=== PATIENT | male | born 1955 | race American Indian/Alaskan Native ===

== ENCOUNTER 2017-12-11 16:04 | Emergency (ER) | payer SELFPAY ==
[2017-12-11 16:13] VITALS: BP 139/91
--- NOTE | 2017-12-11 17:24 | Emergency Department Report ---
ED Male HPI - General Chief complaint: Urogenital-Male Stated complaint: COLON ISSUES Source: patient Mode of arrival: Ambulatory Limitations: No Limitations - History of Present Illness Initial comments: This is a 62-year-old male sitting from [place] with a complaint of difficulty urinating. Past medical history of BPH. Patient states he wears a catheter and the catheter changed. Patient states he was placed October 14 while in [place]. He is concerned it may cause infection. He was told to need to change every 3-4 weeks. He is currently taken finasteride and tamsulosin. He is currently here visiting son and unable to follow up with urology. Patient denies pelvic pain, nausea or vomiting, or fever. MD Complaint: other (change indwelling catheter) Onset/Timin -: month(s) Severity scale (0 -10): 0 Improves with: none Worsens with: none indwelling catheter denies other symptoms - Related Data Sexually active: No Allergies Allergy/AdvReac Type Severity Reaction Status Date / Time No Known Allergies Allergy Verified 12/11/17 16:13 ED Review of Systems ROS: Stated complaint: COLON ISSUES Other details as noted in HPI Constitutional: denies: chills, fever Respiratory: denies: cough, shortness of breath, wheezing Cardiovascular: denies: chest pain, palpitations Gastrointestinal: denies: abdominal pain, nausea, diarrhea Genitourinary: denies: urgency, dysuria Skin: denies: rash, lesions Neurological: denies: headache, weakness, paresthesias Psychiatric: denies: anxiety, depression ED Past Medical Hx - Past Medical History Additional medical history: BPH - Surgical History Past Surgical History?: No - Social History Smoking Status: Never Smoker Substance Use Type: None ED Physical Exam - General Limitations: No Limitations General appearance: alert, in no apparent distress - Respiratory Respiratory exam: Present: normal lung sounds bilaterally. Absent: respiratory distress - Cardiovascular Cardiovascular Exam: Present: regular rate, normal rhythm. Absent: systolic murmur, diastolic murmur, rubs, gallop - GI/Abdominal GI/Abdominal exam: Present: soft, normal bowel sounds - Neurological Exam Neurological exam: Present: alert, oriented X3 - Psychiatric Psychiatric exam: Present: normal affect, normal mood - Skin Skin exam: Present: warm, dry, intact, normal color. Absent: rash ED Course Vital Signs 12/11/17 16:07 Temperature 98.3 F Pulse Rate 85 Respiratory 16 Rate Blood Pressure 139/91 O2 Sat by Pulse 99 Oximetry ED Medical Decision Making - Medical Decision Making Patient was examined by me. Vitals are normal and patient is in no acute distress. Patient presents for replacement of catheter. Discuss options to change catheter with RN who did not feel comfortable changing catheter without urology station baggage porter. Referred to urology or follow-up with another hospital to see urology station baggage porter for catheter replacement. Plan discussed with patient to discharge home and options for follow-up. He agrees with ER plan. Patient discharged home in stable condition. Follow up with PCP in 2-3 days. Critical care attestation.: If time is entered above; I have spent that time in minutes in the direct care of this critically ill patient, excluding procedure time. ED Disposition Clinical Impression: Presence of indwelling Griffith catheter, Encounter for replacement of urinary catheter Disposition: TO HOME OR SELFCARE Is pt being admited?: No Does the pt Need Aspirin: No Condition: Stable Instructions: Griffith Catheter Placement and Care (ED) Additional Instructions: Follow up with urology of emergency room with urology station baggage porter for indwelling catheter replacement. Referrals: VLADIMIR JIMENEZ [Provider Group] - 3-5 Days Time of Disposition: 18:09 Print Language: HONG KONGER
== END 2017-12-11 18:22 | disposition home or self-care (01) ==
LOC: ED 16:04
DX: Z44.8 Encounter for fitting and adjustment of other external prosthetic devices (principal); N40.0 Benign prostatic hyperplasia without lower urinary tract symptoms
CPT/HCPCS: 51702; 99282

== ENCOUNTER 2018-03-11 11:10 | Inpatient (IN) | payer OTHER ==
[2018-03-11] MEDS ORDERED: TYLENOL PO ONE (12:08)
[2018-03-11] MEDS ORDERED: NACL 0.9% 1000 ML 1,000 ML IV ONE (12:10)
--- NOTE | 2018-03-11 12:15 | Emergency Department Report ---
HPI - General Chief Complaint: Altered Mental Status Time Seen by Provider: 03/11/18 11:35 - HPI HPI: Room 2 The patient is 62-year-old male presenting with a chief complaint of altered mental status. The patient's son states that the patient is visiting him and has been in his usual state of health until last night. The son states at approximately 02:00 he had heard the patient fall. By the time the son got upstairs he states the patient was already up and coming out of the bathroom. The son states he feels as though something was not right. He states patient has shallow breathing. The son states he monitored the patient for a while before he (the patient) went to sleep. This morning he went to check on the patient states she still has shallow respirations and still seemed disoriented with decreased alertness. The patient acknowledges he has suprapubic abdominal pain. Patient denies nausea vomiting. Patient denies shortness of breath states he feels as though he could not take a full breath. The patient gives his pain a score of 5/10 Location: [See above] Duration: [See above] Quality: Pain Severity: 5/10 Modifying factors: [see above] Context: [see above] Mode of transportation: [not driving] ED Past Medical Hx - Past Medical History Additional medical history: BPH - Surgical History Past Surgical History?: No - Family History Family history: no significant - Social History Smoking Status: Never Smoker Substance Use Type: None (denies illicit drug use) - Medications Home Medications: Home Medications Medication Instructions Recorded Confirmed Last Taken Type Finasteride [Proscar] 5 mg PO DAILY #14 tablet 12/11/17 Unknown Rx Tamsulosin HCl [Flomax] 0.4 mg PO DAILY #14 cap.er.24h 12/11/17 Unknown Rx ED Review of Systems ROS: Stated complaint: FLU LIKE SYMPTOMS Other details as noted in HPI Constitutional: fever Eyes: denies: eye pain ENT: denies: throat pain Respiratory: denies: shortness of breath Cardiovascular: denies: chest pain Endocrine: no symptoms reported Gastrointestinal: abdominal pain. denies: nausea, vomiting Genitourinary: other (difficulty urinating) Musculoskeletal: denies: back pain Neurological: other (altered mental status). denies: headache Physical Exam - Physical Exam Vital Signs: Vital Signs 03/11/18 11:21 Temperature 101.3 F H Pulse Rate 102 H Respiratory 18 Rate Blood Pressure 175/94 O2 Sat by Pulse 97 Oximetry Physical Exam: GENERAL: The patient is well-developed well-nourished male lying on stretcher not appearing to be in acute distress. [] HEENT: Normocephalic. Atraumatic. Extraocular motions are intact. Patient has moist mucous membranes. NECK: Supple. Trachea midline CHEST/LUNGS: Clear to auscultation. There is no respiratory distress noted. HEART/CARDIOVASCULAR: Regular. There is tachycardia. There is no gallop rub or murmur. ABDOMEN: Abdomen is soft, with tenderness to palpation in the suprapubic and left lower quadrant. Patient has normal bowel sounds. There is no abdominal distention. SKIN: There is no rash. There is no edema. There is no diaphoresis. NEURO: The patient is awake and oriented but slightly decreased alertness. The patient is cooperative. The patient has no focal neurologic deficits. The patient has normal speech. Cranial nerves II through XII grossly intact, no drift MUSCULOSKELETAL: There is no evidence of acute injury. ED Course Vital Signs 03/11/18 11:21 Temperature 101.3 F H Pulse Rate 102 H Respiratory 18 Rate Blood Pressure 175/94 O2 Sat by Pulse 97 Oximetry - Consultations Consultation #1: 03/11/18 13:12 Urology paged- case discussed with Dr Tomlinson- will come place [facility] Medical Decision Making - Lab Data Result diagrams: 03/11/18 12:22 03/11/18 12:22 Laboratory Tests 03/11/18 03/11/18 03/11/18 12:22 12:22 12:22 WBC 12.6 H RBC 4.01 Hgb 10.9 L Hct 32.6 L MCV 81 L MCH 27 L MCHC 33 RDW 14.6 Plt Count 183 Add Manual Diff Complete Total Counted 100 Seg Neutrophils % Dry Cleaning Machine Operator Helper Seg Neuts % (Manual) 87.0 H Band Neutrophils % 9.0 Lymphocytes % (Manual) 4.0 L Reactive Lymphs % (Man) 0 Monocytes % (Manual) 0 Eosinophils % (Manual) 0 Basophils % (Manual) 0 Metamyelocytes % 0 Myelocytes % 0 Promyelocytes % 0 Blast Cells % 0 Nucleated RBC % Not Reportable Seg Neutrophils # Man 11.0 H Band Neutrophils # 1.1 Lymphocytes # (Manual) 0.5 L Abs React Lymphs (Man) 0.0 Monocytes # (Manual) 0.0 Eosinophils # (Manual) 0.0 Basophils # (Manual) 0.0 Metamyelocytes # 0.0 Myelocytes # 0.0 Promyelocytes # 0.0 Blast Cells # 0.0 WBC Morphology Not Reportable Hypersegmented Neuts Not Reportable Hyposegmented Neuts Not Reportable Hypogranular Neuts Not Reportable Smudge Cells Not Reportable Toxic Granulation Not Reportable Toxic Vacuolation Not Reportable Dohle Bodies Not Reportable Pelger-Huet Anomaly Not Reportable Mirna Rods Not Reportable Platelet Estimate Appears normal Clumped Platelets Not Reportable Plt Clumps, EDTA Not Reportable Large Platelets Not Reportable Giant Platelets Not Reportable Platelet Satelliting Not Reportable Plt Morphology Comment Not Reportable RBC Morphology Not Reportable Dimorphic RBCs Not Reportable Polychromasia Not Reportable Hypochromasia Few Poikilocytosis Not Reportable Anisocytosis 1+ Microcytosis Not Reportable Macrocytosis Not Reportable Spherocytes Not Reportable Pappenheimer Bodies Not Reportable Sickle Cells Not Reportable Target Cells Not Reportable Tear Drop Cells Rare Ovalocytes 1+ Helmet Cells Not Reportable [place] Bodies Not Reportable [place] Rings Not Reportable [place] Cells Not Reportable Bite Cells Not Reportable Crenated Cell Not Reportable Elliptocytes Not Reportable Acanthocytes (Spur) Rare Rouleaux Not Reportable Hemoglobin C Crystals Not Reportable Schistocytes Not Reportable Malaria parasites Not Reportable Christopher Bodies Not Reportable Hem Pathologist Commnt No PT 14.1 INR 1.05 APTT 29.1 Sodium 135 L Potassium 4.4 Chloride 101.3 Carbon Dioxide 20 L Anion Gap 18 BUN 37 H Creatinine 1.9 H Estimated GFR 43 BUN/Creatinine Ratio 19 Glucose 114 H Calcium 8.5 Total Bilirubin 0.40 AST 14 ALT 10 Alkaline Phosphatase 73 Total Creatine Kinase 110 CK-MB (CK-2) < 1.0 CK-MB (CK-2) Rel Index 0.9 Troponin T < 0.010 Total Protein 7.8 Albumin 3.6 L Albumin/Globulin Ratio 0.9 Lipase 31 Urine Color Urine Turbidity Urine pH Ur Specific [place] Urine Protein Urine Glucose (UA) Urine Ketones Urine Blood Urine Nitrite Urine Bilirubin Urine Urobilinogen Ur Leukocyte Esterase Urine WBC (Auto) Urine RBC (Auto) U Epithel Cells (Auto) Urine Bacteria (Auto) Hyaline Casts Urine Mucus 03/11/18 12:23 WBC RBC Hgb Hct MCV MCH MCHC RDW Plt Count Add Manual Diff Total Counted Seg Neutrophils % Seg Neuts % (Manual) Band Neutrophils % Lymphocytes % (Manual) Reactive Lymphs % (Man) Monocytes % (Manual) Eosinophils % (Manual) Basophils % (Manual) Metamyelocytes % Myelocytes % Promyelocytes % Blast Cells % Nucleated RBC % Seg Neutrophils # Man Band Neutrophils # Lymphocytes # (Manual) Abs React Lymphs (Man) Monocytes # (Manual) Eosinophils # (Manual) Basophils # (Manual) Metamyelocytes # Myelocytes # Promyelocytes # Blast Cells # WBC Morphology Hypersegmented Neuts Hyposegmented Neuts Hypogranular Neuts Smudge Cells Toxic Granulation Toxic Vacuolation Dohle Bodies Pelger-Huet Anomaly Mirna Rods Platelet Estimate Clumped Platelets Plt Clumps, EDTA Large Platelets Giant Platelets Platelet Satelliting Plt Morphology Comment RBC Morphology Dimorphic RBCs Polychromasia Hypochromasia Poikilocytosis Anisocytosis Microcytosis Macrocytosis Spherocytes Pappenheimer Bodies Sickle Cells Target Cells Tear Drop Cells Ovalocytes Helmet Cells [place] Bodies [place] Rings [place] Cells Bite Cells Crenated Cell Elliptocytes Acanthocytes (Spur) Rouleaux Hemoglobin C Crystals Schistocytes Malaria parasites Christopher Bodies Hem Pathologist Commnt PT INR APTT Sodium Potassium Chloride Carbon Dioxide Anion Gap BUN Creatinine Estimated GFR BUN/Creatinine Ratio Glucose Calcium Total Bilirubin AST ALT Alkaline Phosphatase Total Creatine Kinase CK-MB (CK-2) CK-MB (CK-2) Rel Index Troponin T Total Protein Albumin Albumin/Globulin Ratio Lipase Urine Color Yellow Urine Turbidity Slightly-cloudy Urine pH 7.0 Ur Specific [place] 1.009 Urine Protein 30 mg/dl Urine Glucose (UA) Neg Urine Ketones Neg Urine Blood Sm Urine Nitrite Pos Urine Bilirubin Neg Urine Urobilinogen < 2.0 Ur Leukocyte Esterase Lg Urine WBC (Auto) 153.0 H Urine RBC (Auto) 12.0 U Epithel Cells (Auto) < 1.0 Urine Bacteria (Auto) 1+ Hyaline Casts 1 Urine Mucus Few - Radiology Data Radiology results: report reviewed (CT head, CT chest), image reviewed (CT head, CT chest) [facility] [address] [place] [address] Cat Scan Report Signed Patient: ELMER DOAN MR#: [id number] : 1955 Acct:[id number] Age/Sex: 62 / M ADM Date: 03/11/18 Loc: ED Attending Dr: Ordering Physician: CRISTIAN MIDDLETON MD Date of Service: 03/11/18 Procedure(s): CT head/brain wo con Accession Number(s): [id number] cc: CRISTIAN MIDDLETON MD CT HEAD WITHOUT CONTRAST: HISTORY: Altered mental status, fall, head injury. TECHNIQUE: Sequential CT images without contrast. FINDINGS: Images obtained show bilateral prominence of the sulci and ventricles. There are no abnormal intra- or extra-axial blood or fluid collections. There are no focal masses or evidence of mass effect. The de jesus white matter differentiation appears within normal limits. Regions of periventricular decreased attenuation are consistent with microangiopathic ischemic disease. The posterior fossa structures including the fourth ventricle, cerebellum, and brainstem appear normal. IMPRESSION: Evidence of atrophy and microangiopathic ischemic disease. No acute intracranial process noted. Transcribed By: TTR Dictated By: DEXTER MOONEY JR, MD Electronically Authenticated By: DEXTER MOONEY JR, MD Signed Date/Time: 03/11/181437 DD/ 36 TD/TT: 03/11/181437 [address] [address] Cat Scan Report Signed Patient: ELMER DOAN MR#: [id number] : 1955 Acct:[id number] Age/Sex: 62 / M ADM Date: 03/11/18 Loc: ED Attending Dr: Ordering Physician: CRISTIAN MIDDLETON MD Date of Service: 03/11/18 Procedure(s): CT abdomen pelvis wo con Accession Number(s): [id number] cc: CRISTIAN MIDDLETON MD CT ABDOMEN PELVIS WITHOUT CONTRAST: HISTORY: Suprapubic pain, left lower quadrant abdominal pain. COMPARISON: none. TECHNIQUE: Helical CT in 1.25mm intervals without IV contrast. Sagittal and coronal reconstructions. FINDINGS: Lung bases: The visualized lung bases are well-aerated. Heart size is borderline. Liver: Within normal limits. 1 cm cyst versus hemangioma is noted in the right hepatic lobe. Biliary system: Normal. Pancreas: Normal. Spleen: Normal. Kidneys/ureters/bladder: The bladder is moderately distended. There is diffuse bladder wall thickening which could be secondary to trabeculation. Scattered small bladder diverticula are also identified. There is a prominent indentation along the base of the bladder from the prostate gland. Mild bilateral hydronephrosis is evident. No obstructing ureteral lesion or nephrolithiasis is identified. No focal renal lesion is appreciated. Adrenal glands: Normal. Aorta: Normal. Intestines: Within normal limits given no oral contrast was administered. Appendix: Normal. Pelvic viscera: Normal. Ascites: None. Adenopathy: None. Musculoskeletal: Intact. Mild thoracolumbar spondylosis. IMPRESSION: Enlarged prostate gland. The bladder is distended with diffuse wall thickening/trabeculation and scattered diverticula. Mild bilateral hydronephrosis which appears to be secondary to a distended bladder. Correlate for bladder outlet obstruction. No inflammatory process is identified in the left lower quadrant. Borderline to mild cardiomegaly. Transcribed By: TTR Dictated By: DEXTER MOONEY JR, MD Electronically Authenticated By: DEXTER MOONEY JR, MD Signed Date/Time: 03/11/18 1443 DD/ 1439 TD/TT: 03/11/18 1443 - Differential Diagnosis urinary retention, UTI, sepsis, ICH, diverticulitis Critical care attestation.: If time is entered above; I have spent that time in minutes in the direct care of this critically ill patient, excluding procedure time. ED Disposition Clinical Impression: UTI (urinary tract infection), Altered mental status, Obstructive uropathy, Acute renal failure, Acute abdominal pain Disposition: OP ADMIT IP TO THIS HOSP Is pt being admited?: Yes Does the pt Need Aspirin: No Condition: Fair Referrals: PRIMARY CARE, [Primary Care Provider] - 3-5 Days Time of Disposition: 15:18 (hospitalist paged (Dr Phelan))
[2018-03-11 12:36] LABS: Bacteria,Urine 1+ /HPF (Negative); Bilirubin,Urine NEG (Negative); Blood,Urine SM (Negative); Color,Urine Yellow (Yellow); Hyaline Casts,Urine 1 /LPF; Mucus,Urine FEW /HPF; Urobilinogen,Urine < 2.0 mg/dL (<2.0)
[2018-03-11 12:44] LABS: Hematocrit 32.6 % (35.5-45.6); Hemoglobin 10.9 gm/dl (11.8-15.2); Mean Corpuscular HGB Conc 33 % (32-34); Mean Corpuscular Hemoglobin 27 pg (28-32); Mean Corpuscular Volume 81 fl (84-94); Platelet Count 183 K/mm3 (140-440); Red Blood Count 4.01 M/mm3 (3.65-5.03); Red Cell Distribution Width 14.6 % (13.2-15.2)
[2018-03-11 12:56] LABS: INR 1.05 (0.87-1.13); Partial Thromboplastin Time 29.1 Sec. (24.2-36.6)
[2018-03-11] MEDS ORDERED: NACL 0.9% 1000 ML IV ONE (12:59)
[2018-03-11 13:04] LABS: Creatine Kinase MB < 1.0 ng/mL (0.0-4.0)
[2018-03-11 13:05] LABS: Alanine Aminotransferase 10 units/L (7-56); Albumin 3.6 g/dL (3.9-5); BUN/Creatinine Ratio 19; Blood Urea Nitrogen 37 mg/dL (9-20); Calcium 8.5 mg/dL (8.4-10.2); Hemolysis Index 23; Lipase 31 units/L (13-60)
[2018-03-11 13:15] LABS: Band Neutrophils # (Manual) 1.1 K/mm3; Basophils % (Manual) 0 % (0.0-1.8); Eosinophils % (Manual) 0 % (0.0-4.3); Monocytes % (Manual) 0 % (0.0-7.3); Total Cells Counted 100
[2018-03-11 13:16] LABS: Acanthocytes Rare; Anisocytosis 1+; Hypochromasia Few; Ovalocytes 1+; Tear Drop Cells Rare
[2018-03-11] MEDS: MAXIPIME/NS 2 GM/100 ML 2 GM/100 ML BAG IV SCH (13:19)
--- NOTE | 2018-03-11 14:40 | Cat Scan Report ---
CT HEAD WITHOUT CONTRAST: HISTORY: Altered mental status, fall, head injury. TECHNIQUE: Sequential CT images without contrast. FINDINGS: Images obtained show bilateral prominence of the sulci and ventricles. There are no abnormal intra- or extra-axial blood or fluid collections. There are no focal masses or evidence of mass effect. The de jesus white matter differentiation appears within normal limits. Regions of periventricular decreased attenuation are consistent with microangiopathic ischemic disease. The posterior fossa structures including the fourth ventricle, cerebellum, and brainstem appear normal. IMPRESSION: Evidence of atrophy and microangiopathic ischemic disease. No acute intracranial process noted.
--- NOTE | 2018-03-11 14:45 | Cat Scan Report ---
CT ABDOMEN PELVIS WITHOUT CONTRAST: HISTORY: Suprapubic pain, left lower quadrant abdominal pain. COMPARISON: none. TECHNIQUE: Helical CT in 1.25mm intervals without IV contrast. Sagittal and coronal reconstructions. FINDINGS: Lung bases: The visualized lung bases are well-aerated. Heart size is borderline. Liver: Within normal limits. 1 cm cyst versus hemangioma is noted in the right hepatic lobe. Biliary system: Normal. Pancreas: Normal. Spleen: Normal. Kidneys/ureters/bladder: The bladder is moderately distended. There is diffuse bladder wall thickening which could be secondary to trabeculation. Scattered small bladder diverticula are also identified. There is a prominent indentation along the base of the bladder from the prostate gland. Mild bilateral hydronephrosis is evident. No obstructing ureteral lesion or nephrolithiasis is identified. No focal renal lesion is appreciated. Adrenal glands: Normal. Aorta: Normal. Intestines: Within normal limits given no oral contrast was administered. Appendix: Normal. Pelvic viscera: Normal. Ascites: None. Adenopathy: None. Musculoskeletal: Intact. Mild thoracolumbar spondylosis. IMPRESSION: Enlarged prostate gland. The bladder is distended with diffuse wall thickening/trabeculation and scattered diverticula. Mild bilateral hydronephrosis which appears to be secondary to a distended bladder. Correlate for bladder outlet obstruction. No inflammatory process is identified in the left lower quadrant. Borderline to mild cardiomegaly.
--- NOTE | 2018-03-11 15:28 | History and Physical Report ---
History of Present Illness Chief complaint: He is acting funny History of present illness: 62 YO Male with BPH presents to ED for evaluation of Abdominal pain. Pt is confused and unable to provide detailed history. Pt son is at bedside and provides history. Pt son states that his father was in his usual state of health until 0200 hrs. Pt son reports that his father fell down while in the restroom and was confused. Pt was escorted to his bed and he subsequently went to sleep. Pt son states that he went to check on his dad this morning and found his father to have worsening confusion as well as complaining of abdominal pain. EMS was notified, and upon arrival the patient was found to be confused. Pt transported to [facility] for further care and evaluation. Pt seen and evaluated in ED and found to have UTI complicated by Sepsis, Acidosis, and Acute Renal Failure, and Encephalopathy. CT Abdomen/Pelvis showed Hydronephrosis secondary to urinary obstruction. Pt initiated on sepsis protocol, and admitted to medical floor. Past History Past Medical History: other (BPH) Past Surgical History: No surgical history (reviewed) Social history: single. denies: smoking, alcohol abuse, prescription drug abuse Family history: no significant family history (reviewed) Medications and Allergies Allergies Allergy/AdvReac Type Severity Reaction Status Date / Time No Known Allergies Allergy Verified 03/11/18 11:21 Home Medications Medication Instructions Recorded Confirmed Last Taken Type Finasteride [Proscar] 5 mg PO DAILY #14 tablet 12/11/17 Unknown Rx Tamsulosin HCl [Flomax] 0.4 mg PO DAILY #14 cap.er.24h 12/11/17 Unknown Rx Active Meds: Active Medications Cefepime HCl (Maxipime/Ns 2 Gm/100 Ml) 2 gm in 100 mls @ 200 mls/hr IV Q12HR [facility]; Protocol Last Admin: 03/11/18 13:19 Dose: 200 mls/hr Documented by: Review of Systems ROS unobtainable: due to mental status Exam - Constitutional Vitals: Temp Pulse Resp BP Pulse Ox 99.6 F 88 22 146/85 97 03/11/18 15:20 03/11/18 13:30 03/11/18 13:30 03/11/18 13:30 03/11/18 13:00 General appearance: Present: mild distress - EENT Eyes: Present: PERRL, miosis ENT: hearing intact, clear oral mucosa - Neck Neck: Present: supple, normal ROM - Respiratory Respiratory effort: normal Respiratory: bilateral: CTA - Cardiovascular Heart Sounds: Present: S1 & S2. Absent: rub, click - Extremities Extremities: pulses symmetrical, No edema Peripheral Pulses: abnormal (capillary refill greater than 3.5 seconds) - Abdominal General gastrointestinal: Present: soft, non-tender, non-distended, normal bowel sounds Male genitourinary: Present: normal - Integumentary Integumentary: Present: clear, warm, dry - Musculoskeletal Musculoskeletal: gait normal, strength equal bilaterally - Psychiatric Psychiatric: no appropriate mood/affect, no intact judgment & insight, no memory intact - Neurologic Neurologic: CNII-XII intact, moves all extremities, no gait normal Results - Labs CBC & Chem 7: 03/11/18 12:22 03/11/18 12:22 Labs: Abnormal lab results 03/11/18 03/11/18 03/11/18 Range/Units 12:22 12:22 12:23 WBC 12.6 H (4.5-11.0) K/mm3 Hgb 10.9 L (11.8-15.2) gm/dl Hct 32.6 L (35.5-45.6) % MCV 81 L (84-94) fl MCH 27 L (28-32) pg Seg Neuts % (Manual) 87.0 H (40.0-70.0) % Lymphocytes % (Manual) 4.0 L (13.4-35.0) % Seg Neutrophils # Man 11.0 H (1.8-7.7) K/mm3 Lymphocytes # (Manual) 0.5 L (1.2-5.4) K/mm3 Sodium 135 L (137-145) mmol/L Carbon Dioxide 20 L (22-30) mmol/L BUN 37 H (9-20) mg/dL Creatinine 1.9 H (0.8-1.5) mg/dL Glucose 114 H (75-100) mg/dL Albumin 3.6 L (3.9-5) g/dL Urine WBC (Auto) 153.0 H (0.0-6.0) /HPF Assessment and Plan - Patient Problems (1) Sepsis Current Visit: Yes Status: Acute Qualifiers: Sepsis type: sepsis due to unspecified organism Qualified Code(s): A41.9 - Sepsis, unspecified organism Plan to address problem: IV antibiotic therapy, IVF resuscitation, monitor uop q shift, blood cultures, urinalysis, chest x ray, serial lactic acid level (2) Acidosis Current Visit: Yes Status: Acute Plan to address problem: IVf resuscitation therapy, serial lactic acid level (3) Acute renal failure Current Visit: Yes Status: Acute Qualifiers: Acute renal failure type: with acute tubular necrosis Qualified Code(s): N17.0 - Acute kidney failure with tubular necrosis Plan to address problem: IVF resuscitation, monitor uop q shift, urine electrolytes, repeat bmp to monitor serum creatnine (4) Obstructive uropathy Current Visit: Yes Status: Acute Plan to address problem: Urology consulted in ED, Griffith catheter placed, (5) UTI (urinary tract infection) Current Visit: Yes Status: Acute Qualifiers: Encounter type: initial encounter Plan to address problem: IV antibiotic therapy, urinalysis, supportive care. (6) DVT prophylaxis Current Visit: Yes Status: Acute Plan to address problem: SCD to BLE while in bed.
[2018-03-11] MEDS ORDERED: SODIUM CHLORIDE FLUSH SYRINGE 10 ML IV PRN (15:50)
[2018-03-11] MEDS ORDERED: ZOFRAN IV PRN (15:50)
[2018-03-11] MEDS ORDERED: FIORICET PO ONE (16:21)
[2018-03-12] MEDS: MAXIPIME/NS 2 GM/100 ML 2 GM/100 ML BAG IV SCH ×3 (00:47→21:24)
[2018-03-12] MEDS: SODIUM CHLORIDE FLUSH SYRINGE 10 ML IV SCH ×3 (00:49→21:20)
[2018-03-12 06:13] LABS: Basophils % (Auto) 0.1 % (0.0-1.8); Hematocrit 31.9 % (35.5-45.6); Hemoglobin 10.4 gm/dl (11.8-15.2); Lymphocytes # (Auto) 0.7 K/mm3 (1.2-5.4); Lymphocytes % (Auto) 7.3 % (13.4-35.0); Mean Corpuscular HGB Conc 33 % (32-34); Mean Corpuscular Hemoglobin 27 pg (28-32); Mean Corpuscular Volume 83 fl (84-94); Monocytes # (Auto) 0.3 K/mm3 (0.0-0.8); Monocytes % (Auto) 3.4 % (0.0-7.3); Platelet Count 163 K/mm3 (140-440); Red Blood Count 3.85 M/mm3 (3.65-5.03); Red Cell Distribution Width 14.2 % (13.2-15.2)
[2018-03-12] MEDS ORDERED: AFLURIA QUAD 2018-2019 SYRINGE IM ONE (12:00)
[2018-03-12] MEDS ORDERED: PNEUMOVAX 23 IM ONE (12:00)
--- NOTE | 2018-03-12 12:50 | Progress Note ---
Assessment and Plan Assessment and plan: Sepsis. Continue IV antibiotics and follow-up blood and urine cultures. Acute renal failure. Continue IV fluid hydration. Etiology secondary to obstructive uropathy. Consider nephrology consultation Obstructive uropathy. Urology was consulted in the emergency department. Await follow-up. UTI. Continue IV antibiotics and follow cultures. DVT prophylaxis. Continue SCDs. History Interval history: No new issues overnight Hospitalist Physical - Constitutional Vitals: Temp Pulse Resp BP Pulse Ox 98.1 F 81 20 130/90 98 03/12/18 11:39 03/12/18 11:39 03/12/18 11:39 03/12/18 11:39 03/12/18 11:39 General appearance: Present: no acute distress - EENT Eyes: Present: PERRL, EOM intact ENT: hearing intact, clear oral mucosa, dentition normal - Neck Neck: Present: supple, normal ROM - Respiratory Respiratory effort: normal Respiratory: bilateral: CTA - Cardiovascular Rhythm: regular Heart Sounds: Present: S1 & S2. Absent: gallop, rub - Extremities Extremities: no ischemia, No edema, Full ROM - Abdominal General gastrointestinal: soft, non-tender, non-distended, normal bowel sounds - Integumentary Integumentary: Present: clear, warm, dry - Neurologic Neurologic: CNII-XII intact, moves all extremities Results - Labs CBC & Chem 7: 03/12/18 05:42 03/12/18 05:42 Labs: Laboratory Last Values WBC 10.0 K/mm3 (4.5-11.0) 03/12/18 05:42 RBC 3.85 M/mm3 (3.65-5.03) 03/12/18 05:42 Hgb 10.4 gm/dl (11.8-15.2) L 03/12/18 05:42 Hct 31.9 % (35.5-45.6) L 03/12/18 05:42 MCV 83 fl (84-94) L 03/12/18 05:42 MCH 27 pg (28-32) L 03/12/18 05:42 MCHC 33 % (32-34) 03/12/18 05:42 RDW 14.2 % (13.2-15.2) 03/12/18 05:42 Plt Count 163 K/mm3 (140-440) 03/12/18 05:42 Lymph % (Auto) 7.3 % (13.4-35.0) L 03/12/18 05:42 [place] % (Auto) 3.4 % (0.0-7.3) 03/12/18 05:42 Eos % (Auto) 0.0 % (0.0-4.3) 03/12/18 05:42 Baso % (Auto) 0.1 % (0.0-1.8) 03/12/18 05:42 Lymph # 0.7 K/mm3 (1.2-5.4) L 03/12/18 05:42 [place] # 0.3 K/mm3 (0.0-0.8) 03/12/18 05:42 Eos # 0.0 K/mm3 (0.0-0.4) 03/12/18 05:42 Baso # 0.0 K/mm3 (0.0-0.1) 03/12/18 05:42 Add Manual Diff Complete 03/11/18 12:22 Total Counted 100 03/11/18 12:22 Seg Neutrophils % 89.2 % (40.0-70.0) H 03/12/18 05:42 Seg Neuts % (Manual) 87.0 % (40.0-70.0) H 03/11/18 12:22 Band Neutrophils % 9.0 % 03/11/18 12:22 Lymphocytes % (Manual) 4.0 % (13.4-35.0) L 03/11/18 12:22 Reactive Lymphs % (Man) 0 % 03/11/18 12:22 Monocytes % (Manual) 0 % (0.0-7.3) 03/11/18 12:22 Eosinophils % (Manual) 0 % (0.0-4.3) 03/11/18 12:22 Basophils % (Manual) 0 % (0.0-1.8) 03/11/18 12:22 Metamyelocytes % 0 % 03/11/18 12:22 Myelocytes % 0 % 03/11/18 12:22 Promyelocytes % 0 % 03/11/18 12:22 Blast Cells % 0 % 03/11/18 12:22 Nucleated RBC % Not Reportable 03/11/18 12:22 Seg Neutrophils # 8.9 K/mm3 (1.8-7.7) H 03/12/18 05:42 Seg Neutrophils # Man 11.0 K/mm3 (1.8-7.7) H 03/11/18 12:22 Band Neutrophils # 1.1 K/mm3 03/11/18 12:22 Lymphocytes # (Manual) 0.5 K/mm3 (1.2-5.4) L 03/11/18 12:22 Abs React Lymphs (Man) 0.0 K/mm3 03/11/18 12:22 Monocytes # (Manual) 0.0 K/mm3 (0.0-0.8) 03/11/18 12:22 Eosinophils # (Manual) 0.0 K/mm3 (0.0-0.4) 03/11/18 12:22 Basophils # (Manual) 0.0 K/mm3 (0.0-0.1) 03/11/18 12:22 Metamyelocytes # 0.0 K/mm3 03/11/18 12:22 Myelocytes # 0.0 K/mm3 03/11/18 12:22 Promyelocytes # 0.0 K/mm3 03/11/18 12:22 Blast Cells # 0.0 K/mm3 03/11/18 12:22 WBC Morphology Not Reportable 03/11/18 12:22 Hypersegmented Neuts Not Reportable 03/11/18 12:22 Hyposegmented Neuts Not Reportable 03/11/18 12:22 Hypogranular Neuts Not Reportable 03/11/18 12:22 Smudge Cells Not Reportable 03/11/18 12:22 Toxic Granulation Not Reportable 03/11/18 12:22 Toxic Vacuolation Not Reportable 03/11/18 12:22 Dohle Bodies Not Reportable 03/11/18 12:22 Pelger-Huet Anomaly Not Reportable 03/11/18 12:22 Mirna Rods Not Reportable 03/11/18 12:22 Platelet Estimate Appears normal 03/11/18 12:22 Clumped Platelets Not Reportable 03/11/18 12:22 Plt Clumps, EDTA Not Reportable 03/11/18 12:22 Large Platelets Not Reportable 03/11/18 12:22 Giant Platelets Not Reportable 03/11/18 12:22 Platelet Satelliting Not Reportable 03/11/18 12:22 Plt Morphology Comment Not Reportable 03/11/18 12:22 RBC Morphology Not Reportable 03/11/18 12:22 Dimorphic RBCs Not Reportable 03/11/18 12:22 Polychromasia Not Reportable 03/11/18 12:22 Hypochromasia Few 03/11/18 12:22 Poikilocytosis Not Reportable 03/11/18 12:22 Anisocytosis 1+ 03/11/18 12:22 Microcytosis Not Reportable 03/11/18 12:22 Macrocytosis Not Reportable 03/11/18 12:22 Spherocytes Not Reportable 03/11/18 12:22 Pappenheimer Bodies Not Reportable 03/11/18 12:22 Sickle Cells Not Reportable 03/11/18 12:22 Target Cells Not Reportable 03/11/18 12:22 Tear Drop Cells Rare 03/11/18 12:22 Ovalocytes 1+ 03/11/18 12:22 Helmet Cells Not Reportable 03/11/18 12:22 [place]ub[place] Bodies Not Reportable 03/11/18 12:22 [place] Rings Not Reportable 03/11/18 12:22 [place] Cells Not Reportable 03/11/18 12:22 Bite Cells Not Reportable 03/11/18 12:22 Crenated Cell Not Reportable 03/11/18 12:22 Elliptocytes Not Reportable 03/11/18 12:22 Acanthocytes (Spur) Rare 03/11/18 12:22 Rouleaux Not Reportable 03/11/18 12:22 Hemoglobin C Crystals Not Reportable 03/11/18 12:22 Schistocytes Not Reportable 03/11/18 12:22 Malaria parasites Not Reportable 03/11/18 12:22 Christopher Bodies Not Reportable 03/11/18 12:22 Hem Pathologist Commnt No 03/11/18 12:22 PT 14.1 Sec. (12.2-14.9) 03/11/18 12:22 INR 1.05 (0.87-1.13) 03/11/18 12:22 APTT 29.1 Sec. (24.2-36.6) 03/11/18 12:22 Sodium 136 mmol/L (137-145) L 03/12/18 05:42 Potassium 4.4 mmol/L (3.6-5.0) 03/12/18 05:42 Chloride 103.5 mmol/L (98-107) 03/12/18 05:42 Carbon Dioxide 20 mmol/L (22-30) L 03/12/18 05:42 Anion Gap 17 mmol/L 03/12/18 05:42 BUN 30 mg/dL (9-20) H 03/12/18 05:42 Creatinine 1.8 mg/dL (0.8-1.5) H 03/12/18 05:42 Estimated GFR 46 ml/min 03/12/18 05:42 BUN/Creatinine Ratio 17 % 03/12/18 05:42 Glucose 113 mg/dL (75-100) H 03/12/18 05:42 Lactic Acid 1.40 mmol/L (0.7-2.0) 03/11/18 20:37 Calcium 8.0 mg/dL (8.4-10.2) L 03/12/18 05:42 Total Bilirubin 0.40 mg/dL (0.1-1.2) 03/11/18 12:22 AST 14 units/L (5-40) 03/11/18 12:22 ALT 10 units/L (7-56) 03/11/18 12:22 Alkaline Phosphatase 73 units/L (35-129) 03/11/18 12:22 Total Creatine Kinase 110 units/L (55-170) 03/11/18 12:22 CK-MB (CK-2) < 1.0 ng/mL (0.0-4.0) 03/11/18 12:22 CK-MB (CK-2) Rel Index 0.9 (0-4) 03/11/18 12:22 Troponin T < 0.010 ng/mL (0.00-0.029) 03/11/18 12:22 Total Protein 7.8 g/dL (6.3-8.2) 03/11/18 12:22 Albumin 3.6 g/dL (3.9-5) L 03/11/18 12:22 Albumin/Globulin Ratio 0.9 % 03/11/18 12:22 Lipase 31 units/L (13-60) 03/11/18 12:22 Urine Color Yellow (Yellow) 03/11/18 12:23 Urine Turbidity Slightly-cloudy (Clear) 03/11/18 12:23 Urine pH 7.0 (5.0-7.0) 03/11/18 12:23 Ur Specific [place] 1.009 (1.003-1.030) 03/11/18 12:23 Urine Protein 30 mg/dl mg/dL (Negative) 03/11/18 12:23 Urine Glucose (UA) Neg mg/dL (Negative) 03/11/18 12:23 Urine Ketones Neg mg/dL (Negative) 03/11/18 12:23 Urine Blood Sm (Negative) 03/11/18 12:23 Urine Nitrite Pos (Negative) 03/11/18 12:23 Urine Bilirubin Neg (Negative) 03/11/18 12:23 Urine Urobilinogen < 2.0 mg/dL (<2.0) 03/11/18 12:23 Ur Leukocyte Esterase Lg (Negative) 03/11/18 12:23 Urine WBC (Auto) 153.0 /HPF (0.0-6.0) H 03/11/18 12:23 Urine RBC (Auto) 12.0 /HPF (0.0-6.0) 03/11/18 12:23 U Epithel Cells (Auto) < 1.0 /HPF (0-13.0) 03/11/18 12:23 Urine Bacteria (Auto) 1+ /HPF (Negative) 03/11/18 12:23 Hyaline Casts 1 /LPF 03/11/18 12:23 Urine Mucus Few /HPF 03/11/18 12:23
[2018-03-12] MEDS ORDERED: NACL 0.9% IR ONE (15:45)
[2018-03-12] MEDS: TYLENOL PO PRN (21:23)
[2018-03-13 07:45] LABS: Basophils % (Auto) 0.4 % (0.0-1.8); Eosinophils # (Auto) 0.1 K/mm3 (0.0-0.4); Eosinophils % (Auto) 0.8 % (0.0-4.3); Hematocrit 33.6 % (35.5-45.6); Lymphocytes # (Auto) 1.4 K/mm3 (1.2-5.4); Lymphocytes % (Auto) 16.5 % (13.4-35.0); Mean Corpuscular HGB Conc 33 % (32-34); Mean Corpuscular Hemoglobin 27 pg (28-32); Mean Corpuscular Volume 82 fl (84-94); Monocytes # (Auto) 0.8 K/mm3 (0.0-0.8); Monocytes % (Auto) 9.4 % (0.0-7.3); Platelet Count 191 K/mm3 (140-440); Red Blood Count 4.11 M/mm3 (3.65-5.03); Red Cell Distribution Width 14.9 % (13.2-15.2)
[2018-03-13 08:05] LABS: Calcium 8.7 mg/dL (8.4-10.2)
[2018-03-13] MEDS: MAXIPIME/NS 2 GM/100 ML 2 GM/100 ML BAG IV SCH ×2 (10:14→21:01)
[2018-03-13] MEDS: SODIUM CHLORIDE FLUSH SYRINGE 10 ML IV SCH ×2 (10:14→21:05)
[2018-03-13] MEDS: TYLENOL PO PRN (10:29)
--- NOTE | 2018-03-13 11:08 | Event Note ---
Date: 03/13/[address] Tomlinson in the ED home with hernandez f/u in the office
--- NOTE | 2018-03-13 12:41 | Progress Note ---
Assessment and Plan Assessment and plan: Sepsis. E. Coli bacteremia. Await sensitivities Acute renal failure. Continue IV fluid hydration. Etiology secondary to obstructive uropathy. Consider nephrology consultation Obstructive uropathy. Urology was consulted in the emergency department. Await follow-up. UTI. Continue IV antibiotics and follow cultures. DVT prophylaxis. Continue SCDs. Disposition. Likely discharge in a.m. History Interval history: No new issues overnight Hospitalist Physical - Constitutional Vitals: Temp Pulse Resp BP Pulse Ox 98.5 F 75 20 129/81 98 03/13/18 05:42 03/13/18 05:42 03/13/18 05:42 03/13/18 05:42 03/13/18 05:42 General appearance: Present: no acute distress - EENT Eyes: Present: PERRL, EOM intact ENT: hearing intact, clear oral mucosa, dentition normal - Neck Neck: Present: supple, normal ROM - Respiratory Respiratory effort: normal Respiratory: bilateral: CTA - Cardiovascular Rhythm: regular Heart Sounds: Present: S1 & S2. Absent: gallop, rub - Extremities Extremities: no ischemia, No edema, Full ROM - Abdominal General gastrointestinal: soft, non-tender, non-distended, normal bowel sounds - Integumentary Integumentary: Present: clear, warm, dry - Neurologic Neurologic: CNII-XII intact, moves all extremities Results - Labs CBC & Chem 7: 03/13/18 07:26 03/13/18 07:26 Labs: Laboratory Last Values WBC 8.6 K/mm3 (4.5-11.0) 03/13/18 07:26 RBC 4.11 M/mm3 (3.65-5.03) 03/13/18 07:26 Hgb 11.0 gm/dl (11.8-15.2) L 03/13/18 07:26 Hct 33.6 % (35.5-45.6) L 03/13/18 07:26 MCV 82 fl (84-94) L 03/13/18 07:26 MCH 27 pg (28-32) L 03/13/18 07:26 MCHC 33 % (32-34) 03/13/18 07:26 RDW 14.9 % (13.2-15.2) 03/13/18 07:26 Plt Count 191 K/mm3 (140-440) 03/13/18 07:26 Lymph % (Auto) 16.5 % (13.4-35.0) 03/13/18 07:26 [place] % (Auto) 9.4 % (0.0-7.3) H 03/13/18 07:26 Eos % (Auto) 0.8 % (0.0-4.3) 03/13/18 07:26 Baso % (Auto) 0.4 % (0.0-1.8) 03/13/18 07: Lymph # 1.4 K/mm3 (1.2-5.4) 03/13/18 07: [place] # 0.8 K/mm3 (0.0-0.8) 03/13/18 07: Eos # 0.1 K/mm3 (0.0-0.4) 03/13/18 07: Baso # 0.0 K/mm3 (0.0-0.1) 03/13/18 07:26 Add Manual Diff Complete 03/11/18 12:22 Total Counted 100 03/11/18 12:22 Seg Neutrophils % 72.9 % (40.0-70.0) H 03/13/18 07:26 Seg Neuts % (Manual) 87.0 % (40.0-70.0) H 03/11/18 12:22 Band Neutrophils % 9.0 % 03/11/18 12:22 Lymphocytes % (Manual) 4.0 % (13.4-35.0) L 03/11/18 12:22 Reactive Lymphs % (Man) 0 % 03/11/18 12:22 Monocytes % (Manual) 0 % (0.0-7.3) 03/11/18 12:22 Eosinophils % (Manual) 0 % (0.0-4.3) 03/11/18 12:22 Basophils % (Manual) 0 % (0.0-1.8) 03/11/18 12:22 Metamyelocytes % 0 % 03/11/18 12:22 Myelocytes % 0 % 03/11/18 12:22 Promyelocytes % 0 % 03/11/18 12:22 Blast Cells % 0 % 03/11/18 12:22 Nucleated RBC % Not Reportable 03/11/18 12:22 Seg Neutrophils # 6.3 K/mm3 (1.8-7.7) 03/13/18 07:26 Seg Neutrophils # Man 11.0 K/mm3 (1.8-7.7) H 03/11/18 12:22 Band Neutrophils # 1.1 K/mm3 03/11/18 12:22 Lymphocytes # (Manual) 0.5 K/mm3 (1.2-5.4) L 03/11/18 12:22 Abs React Lymphs (Man) 0.0 K/mm3 03/11/18 12:22 Monocytes # (Manual) 0.0 K/mm3 (0.0-0.8) 03/11/18 12:22 Eosinophils # (Manual) 0.0 K/mm3 (0.0-0.4) 03/11/18 12:22 Basophils # (Manual) 0.0 K/mm3 (0.0-0.1) 03/11/18 12:22 Metamyelocytes # 0.0 K/mm3 03/11/18 12:22 Myelocytes # 0.0 K/mm3 03/11/18 12:22 Promyelocytes # 0.0 K/mm3 03/11/18 12:22 Blast Cells # 0.0 K/mm3 03/11/18 12:22 WBC Morphology Not Reportable 03/11/18 12:22 Hypersegmented Neuts Not Reportable 03/11/18 12:22 Hyposegmented Neuts Not Reportable 03/11/18 12:22 Hypogranular Neuts Not Reportable 03/11/18 12:22 Smudge Cells Not Reportable 03/11/18 12:22 Toxic Granulation Not Reportable 03/11/18 12:22 Toxic Vacuolation Not Reportable 03/11/18 12:22 Dohle Bodies Not Reportable 03/11/18 12:22 Pelger-Huet Anomaly Not Reportable 03/11/18 12:22 Mirna Rods Not Reportable 03/11/18 12:22 Platelet Estimate Appears normal 03/11/18 12:22 Clumped Platelets Not Reportable 03/11/18 12:22 Plt Clumps, EDTA Not Reportable 03/11/18 12:22 Large Platelets Not Reportable 03/11/18 12:22 Giant Platelets Not Reportable 03/11/18 12:22 Platelet Satelliting Not Reportable 03/11/18 12:22 Plt Morphology Comment Not Reportable 03/11/18 12:22 RBC Morphology Not Reportable 03/11/18 12:22 Dimorphic RBCs Not Reportable 03/11/18 12:22 Polychromasia Not Reportable 03/11/18 12:22 Hypochromasia Few 03/11/18 12:22 Poikilocytosis Not Reportable 03/11/18 12:22 Anisocytosis 1+ 03/11/18 12:22 Microcytosis Not Reportable 03/11/18 12:22 Macrocytosis Not Reportable 03/11/18 12:22 Spherocytes Not Reportable 03/11/18 12:22 Pappenheimer Bodies Not Reportable 03/11/18 12:22 Sickle Cells Not Reportable 03/11/18 12:22 Target Cells Not Reportable 03/11/18 12:22 Tear Drop Cells Rare 03/11/18 12:22 Ovalocytes 1+ 03/11/18 12:22 Helmet Cells Not Reportable 03/11/18 12:22 Covarrubias-[place] Bodies Not Reportable 03/11/18 12:22 [place] Rings Not Reportable 03/11/18 12:22 [place] Cells Not Reportable 03/11/18 12:22 Bite Cells Not Reportable 03/11/18 12:22 Crenated Cell Not Reportable 03/11/18 12:22 Elliptocytes Not Reportable 03/11/18 12:22 Acanthocytes (Spur) Rare 03/11/18 12:22 Rouleaux Not Reportable 03/11/18 12:22 Hemoglobin C Crystals Not Reportable 03/11/18 12:22 Schistocytes Not Reportable 03/11/18 12:22 Malaria parasites Not Reportable 03/11/18 12:22 Christopher Bodies Not Reportable 03/11/18 12:22 Hem Pathologist Commnt No 03/11/18 12:22 PT 14.1 Sec. (12.2-14.9) 03/11/18 12:22 INR 1.05 (0.87-1.13) 03/11/18 12:22 APTT 29.1 Sec. (24.2-36.6) 03/11/18 12:22 Sodium 139 mmol/L (137-145) 03/13/18 07:26 Potassium 4.4 mmol/L (3.6-5.0) 03/13/18 07:26 Chloride 104.4 mmol/L (98-107) 03/13/18 07:26 Carbon Dioxide 21 mmol/L (22-30) L 03/13/18 07:26 Anion Gap 18 mmol/L 03/13/18 07:26 BUN 27 mg/dL (9-20) H 03/13/18 07:26 Creatinine 1.9 mg/dL (0.8-1.5) H 03/13/18 07:26 Estimated GFR 43 ml/min 03/13/18 07:26 BUN/Creatinine Ratio 14 % 03/13/18 07:26 Glucose 96 mg/dL (75-100) 03/13/18 07:26 Lactic Acid 1.40 mmol/L (0.7-2.0) 03/11/18 20:37 Calcium 8.7 mg/dL (8.4-10.2) 03/13/18 07:26 Total Bilirubin 0.40 mg/dL (0.1-1.2) 03/11/18 12:22 AST 14 units/L (5-40) 03/11/18 12:22 ALT 10 units/L (7-56) 03/11/18 12:22 Alkaline Phosphatase 73 units/L (35-129) 03/11/18 12:22 Total Creatine Kinase 110 units/L (55-170) 03/11/18 12:22 CK-MB (CK-2) < 1.0 ng/mL (0.0-4.0) 03/11/18 12:22 CK-MB (CK-2) Rel Index 0.9 (0-4) 03/11/18 12:22 Troponin T < 0.010 ng/mL (0.00-0.029) 03/11/18 12:22 Total Protein 7.8 g/dL (6.3-8.2) 03/11/18 12:22 Albumin 3.6 g/dL (3.9-5) L 03/11/18 12:22 Albumin/Globulin Ratio 0.9 % 03/11/18 12:22 Lipase 31 units/L (13-60) 03/11/18 12:22 Urine Color Yellow (Yellow) 03/11/18 12:23 Urine Turbidity Slightly-cloudy (Clear) 03/11/18 12:23 Urine pH 7.0 (5.0-7.0) 03/11/18 12:23 Ur Specific [place] 1.009 (1.003-1.030) 03/11/18 12:23 Urine Protein 30 mg/dl mg/dL (Negative) 03/11/18 12:23 Urine Glucose (UA) Neg mg/dL (Negative) 03/11/18 12:23 Urine Ketones Neg mg/dL (Negative) 03/11/18 12:23 Urine Blood Sm (Negative) 03/11/18 12:23 Urine Nitrite Pos (Negative) 03/11/18 12:23 Urine Bilirubin Neg (Negative) 03/11/18 12:23 Urine Urobilinogen < 2.0 mg/dL (<2.0) 03/11/18 12:23 Ur Leukocyte Esterase Lg (Negative) 03/11/18 12:23 Urine WBC (Auto) 153.0 /HPF (0.0-6.0) H 03/11/18 12:23 Urine RBC (Auto) 12.0 /HPF (0.0-6.0) 03/11/18 12:23 U Epithel Cells (Auto) < 1.0 /HPF (0-13.0) 03/11/18 12:23 Urine Bacteria (Auto) 1+ /HPF (Negative) 03/11/18 12:23 Hyaline Casts 1 /LPF 03/11/18 12:23 Urine Mucus Few /HPF 03/11/18 12:23 Nutrition/Malnutrition Assess - Dietary Evaluation Nutrition/Malnutrition Findings: Nutrition Notes Start: 03/12/18 12:57 Freq: Status: Active Protocol: Document 03/12/18 12:57 [facility] (Rec: 03/12/18 13:02 [facility] SRW- [id number]) Nutrition Notes Need for Assessment generated from: [facility] Initial or Follow up Brief Note Current Diagnoses Sepsis Other Pertinent Diagnosis Obstructive uropathy, encephalopathy, abd pain Current Diet Regular Labs/Tests BUN 30 Cr 1.8 Medications Reviewed Height 5 ft 6 in Weight 64 kg [place] Body Weight (lbs) 142.0 BMI 22.7 Weight Status Appropriate Subjective/Other Information Pt screened for malnutrition risk, however, he is pleasantly confused at time of visit as he is not answering assessment questions appropriately. No family at bedside. He says he ate all of his breakfast this am. Burn Absent Trauma Absent Is patient on ventilator? No Is Patient Ambulatory and/or Out of Bed Yes REE-([facility]-ambulatory/OOB) [ [id number] [id number]] Calculation Used for Recommendations [facility] Additional Notes Pro needs 1-1.2g/k-77g/ day Fluid needs 1ml/kcal Nutrition Intervention Follow-Up By: 03/16/18 Additional Comments F/U: intakes
[2018-03-13] MEDS: PERCOCET 5/325 PO PRN (17:23)
[2018-03-14] MEDS: FLOMAX PO SCH (10:05)
[2018-03-14] MEDS: PROSCAR PO SCH (10:05)
[2018-03-14] MEDS: SODIUM CHLORIDE FLUSH SYRINGE 10 ML IV SCH ×2 (10:05→21:24)
[2018-03-14] MEDS: MAXIPIME/NS 2 GM/100 ML 2 GM/100 ML BAG IV SCH (10:06)
[2018-03-14] MEDS: PERCOCET 5/325 PO PRN ×2 (10:14→20:36)
--- NOTE | 2018-03-14 11:13 | Progress Note ---
Assessment and Plan Assessment and plan: Sepsis. E. Coli bacteremia. ID consultation for recommendations for home antibiotics Acute renal failure. Continue IV fluid hydration. Etiology secondary to obstructive uropathy. Consider nephrology consultation Obstructive uropathy. Urology was consulted and recommends home with Griffith UTI. Continue IV antibiotics and follow cultures. DVT prophylaxis. Continue SCDs. Disposition. Likely discharge in a.m. History Interval history: No new issues overnight Hospitalist Physical - Constitutional Vitals: Temp Pulse Resp BP Pulse Ox 99.0 F 73 20 168/95 99 03/14/18 05:23 03/14/18 05:23 03/14/18 05:23 03/14/18 05:23 03/14/18 05:23 General appearance: Present: no acute distress - EENT Eyes: Present: PERRL, EOM intact ENT: hearing intact, clear oral mucosa, dentition normal - Neck Neck: Present: supple, normal ROM - Respiratory Respiratory effort: normal Respiratory: bilateral: CTA - Cardiovascular Rhythm: regular Heart Sounds: Present: S1 & S2. Absent: gallop, rub - Extremities Extremities: no ischemia, No edema, Full ROM - Abdominal General gastrointestinal: soft, non-tender, non-distended, normal bowel sounds - Integumentary Integumentary: Present: clear, warm, dry - Neurologic Neurologic: CNII-XII intact, moves all extremities Results - Labs CBC & Chem 7: 03/13/18 07:26 03/13/18 07:26 Labs: Laboratory Last Values WBC 8.6 K/mm3 (4.5-11.0) 03/13/18 07:26 RBC 4.11 M/mm3 (3.65-5.03) 03/13/18 07:26 Hgb 11.0 gm/dl (11.8-15.2) L 03/13/18 07:26 Hct 33.6 % (35.5-45.6) L 03/13/18 07:26 MCV 82 fl (84-94) L 03/13/18 07:26 MCH 27 pg (28-32) L 03/13/18 07:26 MCHC 33 % (32-34) 03/13/18 07:26 RDW 14.9 % (13.2-15.2) 03/13/18 07:26 Plt Count 191 K/mm3 (140-440) 03/13/18 07:26 Lymph % (Auto) 16.5 % (13.4-35.0) 03/13/18 07:26 [place] % (Auto) 9.4 % (0.0-7.3) H 03/13/18 07:26 Eos % (Auto) 0.8 % (0.0-4.3) 03/13/18 07:26 Baso % (Auto) 0.4 % (0.0-1.8) 03/13/18 07: Lymph # 1.4 K/mm3 (1.2-5.4) 03/13/18 07: [place] # 0.8 K/mm3 (0.0-0.8) 03/13/18 07: Eos # 0.1 K/mm3 (0.0-0.4) 03/13/18 07: Baso # 0.0 K/mm3 (0.0-0.1) 03/13/18 07:26 Add Manual Diff Complete 03/11/18 12:22 Total Counted 100 03/11/18 12:22 Seg Neutrophils % 72.9 % (40.0-70.0) H 03/13/18 07:26 Seg Neuts % (Manual) 87.0 % (40.0-70.0) H 03/11/18 12:22 Band Neutrophils % 9.0 % 03/11/18 12:22 Lymphocytes % (Manual) 4.0 % (13.4-35.0) L 03/11/18 12:22 Reactive Lymphs % (Man) 0 % 03/11/18 12:22 Monocytes % (Manual) 0 % (0.0-7.3) 03/11/18 12:22 Eosinophils % (Manual) 0 % (0.0-4.3) 03/11/18 12:22 Basophils % (Manual) 0 % (0.0-1.8) 03/11/18 12:22 Metamyelocytes % 0 % 03/11/18 12:22 Myelocytes % 0 % 03/11/18 12:22 Promyelocytes % 0 % 03/11/18 12:22 Blast Cells % 0 % 03/11/18 12:22 Nucleated RBC % Not Reportable 03/11/18 12:22 Seg Neutrophils # 6.3 K/mm3 (1.8-7.7) 03/13/18 07:26 Seg Neutrophils # Man 11.0 K/mm3 (1.8-7.7) H 03/11/18 12:22 Band Neutrophils # 1.1 K/mm3 03/11/18 12:22 Lymphocytes # (Manual) 0.5 K/mm3 (1.2-5.4) L 03/11/18 12:22 Abs React Lymphs (Man) 0.0 K/mm3 03/11/18 12:22 Monocytes # (Manual) 0.0 K/mm3 (0.0-0.8) 03/11/18 12:22 Eosinophils # (Manual) 0.0 K/mm3 (0.0-0.4) 03/11/18 12:22 Basophils # (Manual) 0.0 K/mm3 (0.0-0.1) 03/11/18 12:22 Metamyelocytes # 0.0 K/mm3 03/11/18 12:22 Myelocytes # 0.0 K/mm3 03/11/18 12:22 Promyelocytes # 0.0 K/mm3 03/11/18 12:22 Blast Cells # 0.0 K/mm3 03/11/18 12:22 WBC Morphology Not Reportable 03/11/18 12:22 Hypersegmented Neuts Not Reportable 03/11/18 12:22 Hyposegmented Neuts Not Reportable 03/11/18 12:22 Hypogranular Neuts Not Reportable 03/11/18 12:22 Smudge Cells Not Reportable 03/11/18 12:22 Toxic Granulation Not Reportable 03/11/18 12:22 Toxic Vacuolation Not Reportable 03/11/18 12:22 Dohle Bodies Not Reportable 03/11/18 12:22 Pelger-Huet Anomaly Not Reportable 03/11/18 12:22 Mirna Rods Not Reportable 03/11/18 12:22 Platelet Estimate Appears normal 03/11/18 12:22 Clumped Platelets Not Reportable 03/11/18 12:22 Plt Clumps, EDTA Not Reportable 03/11/18 12:22 Large Platelets Not Reportable 03/11/18 12:22 Giant Platelets Not Reportable 03/11/18 12:22 Platelet Satelliting Not Reportable 03/11/18 12:22 Plt Morphology Comment Not Reportable 03/11/18 12:22 RBC Morphology Not Reportable 03/11/18 12:22 Dimorphic RBCs Not Reportable 03/11/18 12:22 Polychromasia Not Reportable 03/11/18 12:22 Hypochromasia Few 03/11/18 12:22 Poikilocytosis Not Reportable 03/11/18 12:22 Anisocytosis 1+ 03/11/18 12:22 Microcytosis Not Reportable 03/11/18 12:22 Macrocytosis Not Reportable 03/11/18 12:22 Spherocytes Not Reportable 03/11/18 12:22 Pappenheimer Bodies Not Reportable 03/11/18 12:22 Sickle Cells Not Reportable 03/11/18 12:22 Target Cells Not Reportable 03/11/18 12:22 Tear Drop Cells Rare 03/11/18 12:22 Ovalocytes 1+ 03/11/18 12:22 Helmet Cells Not Reportable 03/11/18 12:22 [place] Bodies Not Reportable 03/11/18 12:22 [place] Rings Not Reportable 03/11/18 12:22 [place] Cells Not Reportable 03/11/18 12:22 Bite Cells Not Reportable 03/11/18 12:22 Crenated Cell Not Reportable 03/11/18 12:22 Elliptocytes Not Reportable 03/11/18 12:22 Acanthocytes (Spur) Rare 03/11/18 12:22 Rouleaux Not Reportable 03/11/18 12:22 Hemoglobin C Crystals Not Reportable 03/11/18 12:22 Schistocytes Not Reportable 03/11/18 12:22 Malaria parasites Not Reportable 03/11/18 12:22 Christopher Bodies Not Reportable 03/11/18 12:22 Hem Pathologist Commnt No 03/11/18 12:22 PT 14.1 Sec. (12.2-14.9) 03/11/18 12:22 INR 1.05 (0.87-1.13) 03/11/18 12:22 APTT 29.1 Sec. (24.2-36.6) 03/11/18 12:22 Sodium 139 mmol/L (137-145) 03/13/18 07:26 Potassium 4.4 mmol/L (3.6-5.0) 03/13/18 07:26 Chloride 104.4 mmol/L (98-107) 03/13/18 07:26 Carbon Dioxide 21 mmol/L (22-30) L 03/13/18 07:26 Anion Gap 18 mmol/L 03/13/18 07:26 BUN 27 mg/dL (9-20) H 03/13/18 07:26 Creatinine 1.9 mg/dL (0.8-1.5) H 03/13/18 07:26 Estimated GFR 43 ml/min 03/13/18 07:26 BUN/Creatinine Ratio 14 % 03/13/18 07:26 Glucose 96 mg/dL (75-100) 03/13/18 07:26 Lactic Acid 1.40 mmol/L (0.7-2.0) 03/11/18 20:37 Calcium 8.7 mg/dL (8.4-10.2) 03/13/18 07:26 Total Bilirubin 0.40 mg/dL (0.1-1.2) 03/11/18 12:22 AST 14 units/L (5-40) 03/11/18 12:22 ALT 10 units/L (7-56) 03/11/18 12:22 Alkaline Phosphatase 73 units/L (35-129) 03/11/18 12:22 Total Creatine Kinase 110 units/L (55-170) 03/11/18 12:22 CK-MB (CK-2) < 1.0 ng/mL (0.0-4.0) 03/11/18 12:22 CK-MB (CK-2) Rel Index 0.9 (0-4) 03/11/18 12:22 Troponin T < 0.010 ng/mL (0.00-0.029) 03/11/18 12:22 Total Protein 7.8 g/dL (6.3-8.2) 03/11/18 12:22 Albumin 3.6 g/dL (3.9-5) L 03/11/18 12:22 Albumin/Globulin Ratio 0.9 % 03/11/18 12:22 Lipase 31 units/L (13-60) 03/11/18 12:22 Urine Color Yellow (Yellow) 03/11/18 12:23 Urine Turbidity Slightly-cloudy (Clear) 03/11/18 12:23 Urine pH 7.0 (5.0-7.0) 03/11/18 12:23 Ur Specific [place] 1.009 (1.003-1.030) 03/11/18 12:23 Urine Protein 30 mg/dl mg/dL (Negative) 03/11/18 12:23 Urine Glucose (UA) Neg mg/dL (Negative) 03/11/18 12:23 Urine Ketones Neg mg/dL (Negative) 03/11/18 12:23 Urine Blood Sm (Negative) 03/11/18 12:23 Urine Nitrite Pos (Negative) 03/11/18 12:23 Urine Bilirubin Neg (Negative) 03/11/18 12:23 Urine Urobilinogen < 2.0 mg/dL (<2.0) 03/11/18 12:23 Ur Leukocyte Esterase Lg (Negative) 03/11/18 12:23 Urine WBC (Auto) 153.0 /HPF (0.0-6.0) H 03/11/18 12:23 Urine RBC (Auto) 12.0 /HPF (0.0-6.0) 03/11/18 12:23 U Epithel Cells (Auto) < 1.0 /HPF (0-13.0) 03/11/18 12:23 Urine Bacteria (Auto) 1+ /HPF (Negative) 03/11/18 12:23 Hyaline Casts 1 /LPF 03/11/18 12:23 Urine Mucus Few /HPF 03/11/18 12:23 Nutrition/Malnutrition Assess - Dietary Evaluation Nutrition/Malnutrition Findings: Nutrition Notes Start: 03/12/18 12:57 Freq: Status: Active Protocol: Document 03/12/18 12:57 WISAM (Rec: 03/12/18 13:02 [facility] SRW- [id number]) Nutrition Notes Need for Assessment generated from: [facility] Initial or Follow up Brief Note Current Diagnoses Sepsis Other Pertinent Diagnosis Obstructive uropathy, encephalopathy, abd pain Current Diet Regular Labs/Tests BUN 30 Cr 1.8 Medications Reviewed Height 5 ft 6 in Weight 64 kg [place] Body Weight (lbs) 142.0 BMI 22.7 Weight Status Appropriate Subjective/Other Information Pt screened for malnutrition risk, however, he is pleasantly confused at time of visit as he is not answering assessment questions appropriately. No family at bedside. He says he ate all of his breakfast this am. Burn Absent Trauma Absent Is patient on ventilator? No Is Patient Ambulatory and/or Out of Bed Yes REE-([facility]-ambulatory/OOB) [ 1784.575 NUTR.[id number]] Calculation Used for Recommendations [facility] Additional Notes Pro needs 1-1.2g/k-77g/ day Fluid needs 1ml/kcal Nutrition Intervention Follow-Up By: 03/16/18 Additional Comments F/U: intakes
--- NOTE | 2018-03-14 11:55 | Consultation ---
History of Present Illness - Reason for Consult Consult date: 03/14/18 Bacteremia, UTI Requesting physician: MERRILL SALAZAR - History of Present Illness This patient is a 62 yeal old male with a history of BPH who was brought to the ER on 03/11/18 for evaluation of abdominal pain and confusion. Patients son reports that his father fell down while in the restroom and became confused. The next morning, the patient was found to have worsening confusion as well as abdominal pain. On admission WBC 12.6, Creatinine 1.9, Lactic acid 1.30, Temperature 101.5, Hr 102. BP 175/94, U/A positive for UTI, Urine culture positive for E.coli, Blood cultures positive for E. Coli,, 4 out of 4 bottles, Abdomen and Pelvis CT showed Mild bilateral hydronephrosis which appears to be secondary to a distended bladder. Head CT showed no evidence of atrophy and microangiopathic ischemic disease. No acute intracranial process noted. Patient states that he is visiting his son from [place]. He states that Has had an ongoing problem with passing urine. He states that he had a urinary catheter placed in [place], he periodically gets it changed out but has had the last one in for 5 months. When he arrived here in November he came to the emergency room to have it removed. He was at that time referred to [facility] and it was taken out. He admits to recently having problems with passing an adequate amount of urine. He also states that he has been having reccurrent abdominal pain since removal of the catheter. On Thursday, he had a syncope episode in the bathroom and his son brought him to the ER. Review of Systems General: no fevers, chills no rigors HEENT: no new visual disturbance Respiratory: No cough, sputum, hemoptysis or shortness of breath Cardiovascular: No chest pain, syncope Gastrointestinal: No nausea, vomiting.or diarrhea Genitourinary: + catheter, +CVA tenderness Musculoskeletal: no decreased joint motion, bone or joint pain, joint swelling, muscle aches Neurologic: No headaches, seizures Hematologic: No easy bruising or bleeding Endocrine: No night sweats. acute weight loss Skin: negative for rash, jaundice Psychiatric: stable mood; no excessive anxiety, sadness or moodiness Past History Past Medical History: other (BPH) Past Surgical History: No surgical history (reviewed) Social history: single. denies: smoking, alcohol abuse, prescription drug abuse Family history: no significant family history (reviewed) Medications and Allergies Allergies Allergy/AdvReac Type Severity Reaction Status Date / Time No Known Allergies Allergy Verified 03/11/18 11:21 Home Medications Medication Instructions Recorded Confirmed Last Taken Type Finasteride [Proscar] 5 mg PO DAILY #14 tablet 12/11/17 03/13/18 03/09/18 Rx Tamsulosin HCl [Flomax] 0.4 mg PO DAILY #14 cap.er.24h 12/11/17 03/13/18 03/09/18 Rx Active Meds: Active Medications Acetaminophen (Tylenol) 650 mg PO Q4H PRN PRN Reason: Pain MILD(1-3)/Fever >100.5/HARTLEY Last Admin: 03/13/18 10:29 Dose: 650 mg Documented by: Finasteride (Proscar) 5 mg PO QDAY [facility] Last Admin: 03/14/18 10:05 Dose: 5 mg Documented by: Cefepime HCl (Maxipime/Ns 2 Gm/100 Ml) 2 gm in 100 mls @ 200 mls/hr IV Q12HR S CH; Protocol Last Admin: 03/14/18 10:06 Dose: 200 mls/hr Documented by: Ondansetron HCl (Zofran) 4 mg IV Q8H PRN PRN Reason: Nausea And Vomiting Oxycodone/Acetaminophen (Percocet 5/325) 1 tab PO Q6H PRN PRN Reason: Pain, Moderate (4-6) Last Admin: 03/14/18 10:14 Dose: 1 tab Documented by: Sodium Chloride (Sodium Chloride Flush Syringe 10 Ml) 10 ml IV BID [facility] Last Admin: 03/14/18 10:05 Dose: 10 ml Documented by: Sodium Chloride (Sodium Chloride Flush Syringe 10 Ml) 10 ml IV PRN PRN PRN Reason: LINE FLUSH Tamsulosin HCl (Flomax) 0.4 mg PO QDAY [facility] Last Admin: 03/14/18 10:05 Dose: 0.4 mg Documented by: Physical Examination - Physical Exam Narrative exam: Constitutional: Alert, cooperative. No acute distress Head, Ears, Nose: Normocephalic, atraumatic. External ears, nose normal Eyes: Conjunctivae/corneas clear. No icterus. No ptosis. Neck: Supple, no meningeal signs Oral: dentition good, no thrush Cardiovascular: S1, S2 normal. Respiratory: Good air entry, clear to auscultation bilaterally GI: Soft, non-tender; bowel sounds normal. No peritoneal signs : +Catheter, +CVA tenderness Musculoskeletal: No pedal edema, no cyanosis. Skin: No rash or abscess. Dry skin Hem/Lymphatic: No palpable cervical or supraclavicular nodes. No lymphangitis Psych: Mood ok. Affect normal Neurological: Awake, alert, oriented. - Constitutional Vitals: Vital Signs Temp Pulse Resp BP Pulse Ox 99.0 F 73 20 168/95 99 03/14/18 05:23 03/14/18 05:23 03/14/18 05:23 03/14/18 05:23 03/14/18 05:23 Temperature -Last 24 Hours Temperature 99.0 F Temperature 98.7 F Temperature 98.7 F Results - Labs CBC & Chem 7: 03/13/18 07:26 03/13/18 07:26 Assessment and Plan Imagin03/11/[address]: Evidence of atrophy and microangiopathic ischemic disease. No acute intracranial process noted. 03/11/18 Abdomen/Pelvis CT: Enlarged prostate gland. Mild bilateral hydronephrosis which appears to be secondary to a distended bladder Cultures: 03/11/2018 Urine: MDR E. coli 03/11/2018 Blood: E. coli, 4 out of 4 bottles A/P: 62-year-old male with a history of BPH,admitted with: 1. Sepsis on admission - manifested by leukocytosis. temperature and tacycardia, Etiology GNR bacteremia, +UTI, +hydornephrosis secondary to urinary obstruction. Currently being treated with Cefepime. 2. Bacteremia- Gram negative Jorge bacteremia, 4 out of 4 bottles, likely source U TI. 3. Urinary Tract Infection- likely from GNR. 4. Hydronephrosis- CT Abdomen/Pelvis showed Hydronephrosis. Likely secondary to urinary obstruction- Catheter placed in ED. 5. Acute renal failure. Etiology secondary to obstructive uropathy. Renally dosed antibiotics. Consider nephrology consultation. 6. Acute Encephalopathy related to above Plan: -discontinue Cefepime -Oder blood cultures to ensure clearance -f/u blood cultures -Start Ceftriaxone -Can probably discharge tomorrow on Kelfex, dose will depend on renal function, f/u BMP . [facility] M: [phone] O:[phone]
[2018-03-14] MEDS: ROCEPHIN/NS 2 GM/100 ML 2 GM/100 ML BAG IV SCH (18:00)
[2018-03-15] MEDS: PERCOCET 5/325 PO PRN (07:01)
--- NOTE | 2018-03-15 09:48 | Discharge Summary ---
Providers - Providers Date of Admission: 03/11/18 15:50 Date of discharge: 03/15/18 Attending physician: MERRILL SALAZAR 03/12/18 12:51 Consult to Physician [CONS] Routine Comment: Consulting Provider: ABDULAZIZ PEÑALOZA Physician Instructions: Reason For Exam: hydronephrosis 03/14/18 09:18 Consult to Physician [CONS] Routine Comment: Consulting Provider: VIPUL LINO Physician Instructions: Reason For Exam: bacteremia Primary care physician: [facility] Hospitalization Reason for admission: uti Condition: Fair Hospital course: This patient is a 62 yeal old male with a history of BPH who was brought to the ER on 03/11/18 for evaluation of abdominal pain and confusion. Patients son reports that his father fell down while in the restroom and became confused. The next morning, the patient was found to have worsening confusion as well as abdominal pain. On admission WBC 12.6, Creatinine 1.9, Lactic acid 1.30, Temperature 101.5, Hr 102. BP 175/94, U/A positive for UTI, Urine culture positive for E.coli, Blood cultures positive for E. Coli,, 4 out of 4 bottles, Abdomen and Pelvis CT showed Mild bilateral hydronephrosis which appears to be secondary to a distended bladder. Head CT showed no evidence of atrophy and microangiopathic ischemic disease. No acute intracranial process noted. Patient states that he is visiting his son from [place]. He states that Has had an ongoing problem with passing urine. He states that he had a urinary catheter placed in [place], he periodically gets it changed out but has had the last one in for 5 months. When he arrived here in November he came to the emergency room to have it removed. He was at that time referred to [facility] and it was taken out. He admits to recently having problems with passing an adequate amount of urine. He also states that he has been having reccurrent abdominal pain since removal of the catheter. On Thursday, he had a syncope episode in the bathroom and his son brought him to the ER. Patient was admitted with diagnosis of sepsis, UTI, acute renal failure secondary to obstructive uropathy. Patient was placed on the sepsis pathway and blood cultures were obtained which revealed Escherichia coli.. ID was consulted for the Escherichia coli bacteremia and recommended Keflex for discharge medications. Patient is to have Griffith to remain and follow-up urology as an outpatient. Dedicated discharge time 32 minutes. Disposition: DC-01 TO HOME OR SELFCARE Time spent for discharge: 32 - Discharge Diagnoses (1) Toxic encephalopathy Status: Acute (2) Acute renal failure Status: Acute Qualifiers: Acute renal failure type: with acute tubular necrosis Qualified Code(s): N17.0 - Acute kidney failure with tubular necrosis (3) Obstructive uropathy Status: Acute (4) Sepsis Status: Acute Qualifiers: Sepsis type: sepsis due to unspecified organism Qualified Code(s): A41.9 - Sepsis, unspecified organism (5) UTI (urinary tract infection) Status: Acute Qualifiers: Encounter type: initial encounter Core Measure Documentation - Palliative Care Palliative Care/ Comfort Measures: Not Applicable - Core Measures Any of the following diagnoses?: none Exam - Constitutional Vitals: Temp Pulse Resp BP Pulse Ox 98.5 F 78 18 147/92 98 03/15/18 06:00 03/15/18 06:00 03/15/18 06:00 03/15/18 06:00 03/15/18 06:00 General appearance: Present: no acute distress, well-nourished - EENT Eyes: Present: PERRL ENT: hearing intact, clear oral mucosa - Neck Neck: Present: supple, normal ROM - Respiratory Respiratory effort: normal Respiratory: bilateral: CTA - Cardiovascular Heart Sounds: Present: S1 & S2. Absent: rub, click - Extremities Extremities: pulses symmetrical, No edema Peripheral Pulses: within normal limits - Abdominal General gastrointestinal: Present: soft, non-tender, non-distended, normal bowel sounds Male genitourinary: Present: normal - Integumentary Integumentary: Present: clear, warm, dry - Musculoskeletal Musculoskeletal: gait normal, strength equal bilaterally - Psychiatric Psychiatric: appropriate mood/affect, intact judgment & insight - Neurologic Neurologic: CNII-XII intact, moves all extremities Plan Activity: no restrictions Weight Bearing Status: Full Weight Bearing Durable Medical Equipment Needed Upon Discharge: other (Griffith) Additional Instructions: Leave Griffith and f/u with Urology Follow up with: PRIMARY MD MEME [Primary Care Provider] - 3-5 Days ABDULAZIZ PEÑALOZA MD [Staff Physician] - 7 Days Prescriptions: cephALEXin [Keflex] 500 mg PO Q6HR 14 Days #56 capsule Finasteride [Proscar] 5 mg PO QDAY #30 tablet oxyCODONE /ACETAMINOPHEN [Percocet 5/325 mg] 1 tab PO Q6H PRN #10 tablet PRN Reason: Pain, Moderate (4-6) Tamsulosin [Flomax] 0.4 mg PO QDAY #30 capsule
--- NOTE | 2018-03-15 10:06 | Progress Note ---
<NEAL BOB - Last Filed: 03/15/18 13:20> Assessment and Plan Imagin03/11/[address]: Evidence of atrophy and microangiopathic ischemic disease. No acute intracranial process noted. 03/11/18 Abdomen/Pelvis CT: Enlarged prostate gland. Mild bilateral hydronephrosis which appears to be secondary to a distended bladder Cultures: 03/11/2018 Urine: MDR E. coli 03/11/2018 Blood: E. coli, 4 out of 4 bottles A/P: 62-year-old male with a history of BPH,admitted with: 1. Sepsis on admission - manifested by leukocytosis. temperature and tacycardia, Etiology GNR bacteremia, +UTI, +hydornephrosis secondary to urinary obstruction. Currently being treated with Cefepime. 2. Bacteremia- Gram negative Jorge bacteremia, 4 out of 4 bottles, likely source UTI. 3. Urinary Tract Infection- likely from GNR. 4. Hydronephrosis- CT Abdomen/Pelvis showed Hydronephrosis. Likely secondary to urinary obstruction- Catheter placed in ED. 5. Acute renal failure. Etiology secondary to obstructive uropathy. Renally dosed antibiotics. Consider nephrology consultation. 6. Acute Encephalopathy related to above Plan: -continue Ceftriaxone while inpatient -can discharge on Keflex 250mg, po every 6 hours for 10 days ending 03/24/18 -f/u with outpatient urologist [facility] M: [phone] O:[phone] Subjective Date of service: 03/15/18 Interval history: Patient seen and examined. Denied pain, fever, SOB or rashes. Patient stated that he was feeling better. Discussed discharge plans regarding following up with urologist. Objective - Exam Narrative Exam: Constitutional: Alert, cooperative. No acute distress Head, Ears, Nose: Normocephalic, atraumatic. External ears, nose normal Eyes: Conjunctivae/corneas clear. No icterus. No ptosis. Neck: Supple, no meningeal signs Oral: dentition good, no thrush Cardiovascular: S1, S2 normal. Respiratory: Good air entry, clear to auscultation bilaterally GI: Soft, non-tender; bowel sounds normal. No peritoneal signs : +Catheter, + mild CVA tenderness Musculoskeletal: No pedal edema, no cyanosis. Skin: No rash or abscess. Dry skin Hem/Lymphatic: No palpable cervical or supraclavicular nodes. No lymphangitis Psych: Mood ok. Affect normal Neurological: Awake, alert, oriented. - Constitutional Vitals: Vital Signs Temp Pulse Resp BP Pulse Ox 98.5 F 78 18 147/92 98 03/15/18 06:00 03/15/18 06:00 03/15/18 06:00 03/15/18 06:00 03/15/18 06:00 Temperature -Last 24 Hours Temperature 98.5 F Temperature 99.5 F Temperature 98.9 F Temperature 98.9 F Temperature 98.6 F - Labs CBC & Chem 7: 03/13/18 07:26 03/15/18 04:14 Labs: Abnormal lab results 03/15/18 Range/Units 04:14 Sodium 133 L (137-145) mmol/L Chloride 97.3 L (98-107) mmol/L BUN 26 H (9-20) mg/dL Creatinine 1.8 H (0.8-1.5) mg/dL <VIPUL LINO - Last Filed: 03/15/18 18:01> Assessment and Plan I have personally seen and evaluated this patient on 03/15/2018 with Neal Bob NP. I have reviewed and confirmed the medical history, physical examination findings, pertinent lab data, microbiologic data & personally reviewed the imaging. I evaluated the risk-benefit, side effect profile of anti- microbials and formulated the assessment and plan. Objective - Constitutional Vitals: Vital Signs Temp Pulse Resp BP Pulse Ox 98.2 F 73 16 134/77 98 03/15/18 11:21 03/15/18 11:21 03/15/18 11:21 03/15/18 11:21 03/15/18 11:21 Temperature -Last 24 Hours Temperature 98.2 F Temperature 98.5 F Temperature 99.5 F - Labs CBC & Chem 7: 03/13/18 07:26 03/15/18 04:14 Labs: Abnormal lab results 03/15/18 Range/Units 04:14 Sodium 133 L (137-145) mmol/L Chloride 97.3 L (98-107) mmol/L BUN 26 H (9-20) mg/dL Creatinine 1.8 H (0.8-1.5) mg/dL
[2018-03-15] MEDS: FLOMAX PO SCH (10:44)
[2018-03-15] MEDS: SODIUM CHLORIDE FLUSH SYRINGE 10 ML IV SCH (10:44)
[2018-03-15] MEDS: ROCEPHIN/NS 2 GM/100 ML 2 GM/100 ML BAG IV SCH (10:44)
[2018-03-15] MEDS: PROSCAR PO SCH (10:44)
[2018-03-15] MEDS: TYLENOL PO PRN (10:52)
[2018-03-15 11:55] VITALS: BP 134/77
== END 2018-03-15 14:50 | disposition home or self-care (01) | DRG 871 ==
LOC: ED 11:10 → 3A 15:50
PROVIDERS: ADMIT Internal Medicine; ATTEND Hospitalist
PROC: 3E0234Z Introduction of Serum, Toxoid and Vaccine into Muscle, Percutaneous Approach (ICD-10-PCS; principal; 2018-03-12)
DX: A41.51 Sepsis due to Escherichia coli [E. coli] (principal); G92 Toxic encephalopathy; N17.0 Acute kidney failure with tubular necrosis; N13.6 Pyonephrosis; N13.9 Obstructive and reflux uropathy, unspecified; Z23 Encounter for immunization; W18.39XA Other fall on same level, initial encounter; Y93.89 Activity, other specified; Y92.89 Other specified places as the place of occurrence of the external cause; Y99.8 Other external cause status; N40.0 Benign prostatic hyperplasia without lower urinary tract symptoms
CPT/HCPCS: 36415; 70450; 74176; 80048; 80053; 81001; 82140; 82550; 82553; 83690; 84484; 85007; 85025; 85610; 85730; 87040; 87076; 87086; 87116; 87186; 90686; 90732; 99285; G0378; C1726; C1769; J0692; J0696; J7030

== ENCOUNTER 2018-11-09 15:56 | Inpatient (IN) | payer OTHER ==
--- NOTE | 2018-11-09 16:06 | Event Note ---
ED Screening Note Date of service: 11/09/18 Time: 16:02 ED Screening Note: 63 y o male presents to Ed for new dx of hypertention presents to the ER with intermittent strickland This initial assessment/diagnostic orders/clinical plan/treatment(s) is/are subject to change based on patients health status, clinical progression and re- assessment by fellow clinical providers in the ED. Further treatment and workup at subsequent clinical providers discretion. Patient/guardian urged not to elope from the ED as their condition may be serious if not clinically assessed and managed. Initial orders include: labs
--- NOTE | 2018-11-09 17:09 | Emergency Department Report ---
ED General Adult HPI - General Chief complaint: High BP Stated complaint: HIGH BP Time Seen by Provider: 11/09/18 16:02 Source: patient Mode of arrival: Ambulatory Limitations: No Limitations - History of Present Illness Initial comments: 66 yo M presents from PCP for elevated BP. PT currently has no physical complaints but does report occasional mild HARTLEY over the past couple of weeks. Pt denies fever, cough, sob, CP or focal weakness. Per pt he has never been on BP medications. -: This afternoon Improves with: none Worsens with: none Associated Symptoms: denies other symptoms - Related Data Previous Rx's Medication Instructions Recorded Last Taken Type Finasteride [Proscar] 5 mg PO DAILY #14 tablet 12/11/17 03/09/18 Rx Tamsulosin HCl [Flomax] 0.4 mg PO DAILY #14 cap.er.24h 12/11/17 03/09/18 Rx Finasteride [Proscar] 5 mg PO QDAY #30 tablet 03/15/18 Unknown Rx Tamsulosin [Flomax] 0.4 mg PO QDAY #30 capsule 03/15/18 Unknown Rx cephALEXin [Keflex] 500 mg PO Q6HR 14 Days #56 capsule 03/15/18 Unknown Rx oxyCODONE /ACETAMINOPHEN [Percocet 1 tab PO Q6H PRN #10 tablet 03/15/18 Unknown Rx 5/325 mg] Allergies Allergy/AdvReac Type Severity Reaction Status Date / Time No Known Allergies Allergy Verified 03/11/18 11:21 ED Review of Systems ROS: Stated complaint: HIGH BP Other details as noted in HPI Constitutional: denies: see HPI, chills, fever Eyes: denies: as per HPI ENT: as per HPI Respiratory: no symptoms reported Cardiovascular: denies: chest pain, palpitations, dyspnea on exertion, orthopnea Endocrine: no symptoms reported Neurological: headache. denies: weakness, numbness, paresthesias, abnormal gait ED Past Medical Hx - Past Medical History Previous Medical History?: Yes Hx Asthma: Yes Hx HIV: No Additional medical history: BPH - Surgical History Past Surgical History?: No - Social History Smoking Status: Never Smoker Substance Use Type: None - Medications Home Medications: Home Medications Medication Instructions Recorded Confirmed Last Taken Type Finasteride [Proscar] 5 mg PO DAILY #14 tablet 12/11/17 03/13/18 03/09/18 Rx Tamsulosin HCl [Flomax] 0.4 mg PO DAILY #14 cap.er.24h 12/11/17 03/13/18 Rx Finasteride [Proscar] 5 mg PO QDAY #30 tablet 03/15/18 Unknown Rx Tamsulosin [Flomax] 0.4 mg PO QDAY #30 capsule 03/15/18 Unknown Rx cephALEXin [Keflex] 500 mg PO Q6HR 14 Days #56 capsule 03/15/18 Unknown Rx oxyCODONE /ACETAMINOPHEN [Percocet 1 tab PO Q6H PRN #10 tablet 03/15/18 Unknown Rx 5/325 mg] ED Physical Exam - General Limitations: No Limitations General appearance: alert, in no apparent distress - Eye Eye exam: Present: normal appearance, PERRL, EOMI Pupils: Present: normal accommodation - Neck Neck exam: Present: normal inspection. Absent: tenderness, meningismus - Respiratory Respiratory exam: Absent: wheezes, rales - Cardiovascular Cardiovascular Exam: Present: regular rate, normal rhythm, bradycardia - GI/Abdominal GI/Abdominal exam: Present: soft. Absent: distended, tenderness, guarding - Rectal Rectal exam: Present: deferred - Extremities Exam Extremities exam: Present: normal inspection, full ROM. Absent: calf tenderness - Back Exam Back exam: Present: normal inspection, full ROM. Absent: tenderness, CVA tender ness (R), CVA tenderness (L) - Neurological Exam Neurological exam: Present: alert, altered, oriented X3, CN II-XII intact, normal gait - Psychiatric Psychiatric exam: Present: normal affect, normal mood. Absent: depressed, agitated - Skin Skin exam: Present: warm, dry ED Course Vital Signs 11/09/18 11/09/18 11/09/18 16:02 17:19 18:30 Temperature 98.2 F 98.2 F 97.3 F L Pulse Rate 80 68 68 Respiratory 18 16 15 Rate Blood Pressure 210/106 Blood Pressure 178/93 203/94 [Left] O2 Sat by Pulse 98 100 98 Oximetry 11/09/18 11/09/18 18:41 19:10 Temperature 98.7 F Pulse Rate 83 66 Respiratory 15 Rate Blood Pressure 203/94 Blood Pressure 168/80 [Left] O2 Sat by Pulse 98 Oximetry Vital Signs 11/09/18 11/09/18 11/09/18 16:02 17:19 18:30 Temperature 98.2 F 98.2 F 97.3 F L Pulse Rate 80 68 68 Respiratory 18 16 15 Rate Blood Pressure 210/106 Blood Pressure 178/93 203/94 [Left] O2 Sat by Pulse 98 100 98 Oximetry 11/09/18 11/09/18 18:41 19:10 Temperature 98.7 F Pulse Rate 83 66 Respiratory 15 Rate Blood Pressure 203/94 Blood Pressure 168/80 [Left] O2 Sat by Pulse 98 Oximetry - Reevaluation(s) Reevaluation #1: 11/09/18 20:02 Patient resting comfortably in no acute distress. By mouth hypertensive medication given by nurse secondary to elevated blood pressure. ED Medical Decision Making - Lab Data Result diagrams: 11/09/18 17:39 11/09/18 17:39 Lab Results 11/09/18 11/09/18 11/09/18 Range/Units 17:36 17:39 17:39 WBC 5.1 (4.5-11.0) K/mm3 RBC 4.41 (3.65-5.03) M/mm3 Hgb 12.5 (11.8-15.2) gm/dl Hct 37.9 (35.5-45.6) % MCV 86 (84-94) fl MCH 28 (28-32) pg MCHC 33 (32-34) % RDW 15.0 (13.2-15.2) % Plt Count 141 (140-440) K/mm3 Lymph % (Auto) 22.4 (13.4-35.0) % [place] % (Auto) 5.6 (0.0-7.3) % Eos % (Auto) 1.1 (0.0-4.3) % Baso % (Auto) 0.7 (0.0-1.8) % Lymph # 1.1 L (1.2-5.4) K/mm3 [place] # 0.3 (0.0-0.8) K/mm3 Eos # 0.1 (0.0-0.4) K/mm3 Baso # 0.0 (0.0-0.1) K/mm3 Seg Neutrophils % 70.2 H (40.0-70.0) % Seg Neutrophils # 3.6 (1.8-7.7) K/mm3 Sodium 140 (137-145) mmol/L Potassium 4.6 (3.6-5.0) mmol/L Chloride 102.7 (98-107) mmol/L Carbon Dioxide 26 (22-30) mmol/L Anion Gap 16 mmol/L BUN 36 H (9-20) mg/dL Creatinine 1.6 H (0.8-1.5) mg/dL Estimated GFR 53 ml/min BUN/Creatinine Ratio 23 % Glucose 91 (75-100) mg/dL Calcium 9.1 (8.4-10.2) mg/dL Total Bilirubin 0.20 (0.1-1.2) mg/dL AST 16 (5-40) units/L ALT 14 (7-56) units/L Alkaline Phosphatase 68 (35-129) units/L Total Protein 7.7 (6.3-8.2) g/dL Albumin 3.9 (3.9-5) g/dL Albumin/Globulin Ratio 1.0 % Urine Color Yellow (Yellow) Urine Turbidity Cloudy (Clear) Urine pH 7.0 (5.0-7.0) Ur Specific [place] 1.013 (1.003-1.030) Urine Protein 30 mg/dl (Negative) mg/dL Urine Glucose (UA) Neg (Negative) mg/dL Urine Ketones Neg (Negative) mg/dL Urine Blood Sm (Negative) Urine Nitrite Neg (Negative) Urine Bilirubin Neg (Negative) Urine Urobilinogen < 2.0 (<2.0) mg/dL Ur Leukocyte Esterase Lg (Negative) Urine WBC (Auto) > 182.0 H (0.0-6.0) /HPF Urine RBC (Auto) 12.0 (0.0-6.0) /HPF U Epithel Cells (Auto) 1.0 (0-13.0) /HPF Urine Mucus Few /HPF - EKG Data EKG shows normal: axis - EKG Data 11/09/18 17:41 normal sinus rhythm, normal axis, RBB. no st elevations or depression. - Medical Decision Making 63-year-old male presents to ED after being referred by urologist. Patient was found to be hypertensive in clinic which is why he was sent to ED. Per patient patient asymptomatic on arrival and has not been on any medication or had any follow-up since last physician evaluation. Internal medicine service, consultated for admission for acute renal failure and elevated blood pressure. Will to treat for UTI with IV medications. Critical Care Time: No Critical care attestation.: If time is entered above; I have spent that time in minutes in the direct care of this critically ill patient, excluding procedure time. ED Disposition Clinical Impression: Hypertensive urgency, UTI (urinary tract infection) Disposition: OP ADMIT IP TO THIS HOSP Is pt being admited?: Yes Does the pt Need Aspirin: No Condition: Fair Instructions: Hypertension (ED) Time of Disposition: 20:05
[2018-11-09 17:59] LABS: Bilirubin,Urine NEG (Negative); Blood,Urine SM (Negative); Color,Urine Yellow (Yellow); Mucus,Urine FEW /HPF; Urobilinogen,Urine < 2.0 mg/dL (<2.0); WBC,Urine > 182.0 /HPF (0.0-6.0)
[2018-11-09 18:05] LABS: Basophils % (Auto) 0.7 % (0.0-1.8); Eosinophils # (Auto) 0.1 K/mm3 (0.0-0.4); Eosinophils % (Auto) 1.1 % (0.0-4.3); Hematocrit 37.9 % (35.5-45.6); Hemoglobin 12.5 gm/dl (11.8-15.2); Lymphocytes # (Auto) 1.1 K/mm3 (1.2-5.4); Lymphocytes % (Auto) 22.4 % (13.4-35.0); Mean Corpuscular HGB Conc 33 % (32-34); Mean Corpuscular Volume 86 fl (84-94); Monocytes # (Auto) 0.3 K/mm3 (0.0-0.8); Monocytes % (Auto) 5.6 % (0.0-7.3); Platelet Count 141 K/mm3 (140-440); Red Blood Count 4.41 M/mm3 (3.65-5.03)
[2018-11-09 18:17] LABS: Albumin 3.9 g/dL (3.9-5); Calcium 9.1 mg/dL (8.4-10.2)
[2018-11-09] MEDS ORDERED: CATAPRES PO ONE (18:29)
[2018-11-09] MEDS ORDERED: NACL 0.9% 1000 ML 1,000 ML IV ONE (18:45)
[2018-11-09] MEDS ORDERED: ROCEPHIN/NS 1 GM/50 ML 1 GM/50 ML BAG IV ONE (19:07)
--- NOTE | 2018-11-09 20:43 | History and Physical Report ---
History of Present Illness Date of examination: 11/09/18 Date of admission: 11/09/18 19:47 Chief complaint: Headache History of present illness: 63-year-old -Niuean male with history of BPH who presents to [facility] ED with complaints of elevated systolic blood pressure and headache. Patient states he was having his urologist office and his systolic blood pressure was found to be 220, and was immediately referred ED for evaluation and treatment. Upon arrival at our facility patient had blood pressure of 210/106. He was treated with IV antihypertensive and was responsive. Admits: generalize headache Denies: Fever, chills, nausea, visual disturbances, gait dysfunction, hematuria, dysuria Past History Past Medical History: hypertension, other (BPH) Past Surgical History: No surgical history Social history: Family history: no significant family history Medications and Allergies Allergies Allergy/AdvReac Type Severity Reaction Status Date / Time No Known Allergies Allergy Verified 03/11/18 11:21 Home Medications Medication Instructions Recorded Confirmed Last Taken Type Finasteride [Proscar] 5 mg PO QDAY #30 tablet 03/15/18 11/09/18 Unknown Rx Tamsulosin [Flomax] 0.4 mg PO QDAY #30 capsule 03/15/18 11/09/18 Unknown Rx Review of Systems All systems: negative Neurological: headaches Exam - Physical Exam Narrative exam: Physical exam General appearance: Present: Apparent distress, alert and oriented 3 pleasant, well-developed, well-nourished -Niuean male - EENT Eyes: Present: PERRL, EOM intact ENT: hearing intact, normal dentition - Neck Neck: Present: supple, normal ROM - Respiratory Respiratory effort: Non-labored Respiratory: CTA bilaterally - Cardiovascular Heart rate: 80 (bpm) Rhythm: SR Heart Sounds: Present: S1 & S2. Absent: rub, click - Extremities Extremities: no ischemia, pulses intact - Peripheral Assessment Peripheral Pulses: within normal limits - Abdominal General gastrointestinal: soft, non-tender, normal bowel sounds - Integumentary Integumentary: Present: warm, dry - Musculoskeletal Musculoskeletal: able to move all extremities -Neurological Neurological: CN II-XII grossly intact - Psychiatric Psychiatric: cooperative - Constitutional Vitals: Temp Pulse Resp BP Pulse Ox 98.7 F 60 15 177/90 98 11/09/18 19:10 11/09/18 20:31 11/09/18 20:31 11/09/18 20:31 11/09/18 20:31 Results - Labs CBC & Chem 7: 11/09/18 17:39 11/09/18 17:39 Labs: Laboratory Last Values WBC 5.1 K/mm3 (4.5-11.0) 11/09/18 17:39 RBC 4.41 M/mm3 (3.65-5.03) 11/09/18 17:39 Hgb 12.5 gm/dl (11.8-15.2) 11/09/18 17:39 Hct 37.9 % (35.5-45.6) 11/09/18 17:39 MCV 86 fl (84-94) 11/09/18 17:39 MCH 28 pg (28-32) 11/09/18 17:39 MCHC 33 % (32-34) 11/09/18 17:39 RDW 15.0 % (13.2-15.2) 11/09/18 17:39 Plt Count 141 K/mm3 (140-440) 11/09/18 17:39 Lymph % (Auto) 22.4 % (13.4-35.0) 11/09/18 17:39 [place] % (Auto) 5.6 % (0.0-7.3) 11/09/18 17:39 Eos % (Auto) 1.1 % (0.0-4.3) 11/09/18 17:39 Baso % (Auto) 0.7 % (0.0-1.8) 11/09/18 17:39 Lymph # 1.1 K/mm3 (1.2-5.4) L 11/09/18 17:39 [place] # 0.3 K/mm3 (0.0-0.8) 11/09/18 17:39 Eos # 0.1 K/mm3 (0.0-0.4) 11/09/18 17:39 Baso # 0.0 K/mm3 (0.0-0.1) 11/09/18 17:39 Seg Neutrophils % 70.2 % (40.0-70.0) H 11/09/18 17:39 Seg Neutrophils # 3.6 K/mm3 (1.8-7.7) 11/09/18 17:39 Sodium 140 mmol/L (137-145) 11/09/18 17:39 Potassium 4.6 mmol/L (3.6-5.0) 11/09/18 17:39 Chloride 102.7 mmol/L (98-107) 11/09/18 17:39 Carbon Dioxide 26 mmol/L (22-30) 11/09/18 17:39 16 mmol/L 11/09/18 17:39 BUN 36 mg/dL (9-20) H 11/09/18 17:39 1.6 mg/dL (0.8-1.5) H 11/09/18 17:39 Estimated GFR 53 ml/min 11/09/18 17:39 23 % 11/09/18 17:39 Glucose 91 mg/dL (75-100) 11/09/18 17:39 Calcium 9.1 mg/dL (8.4-10.2) 11/09/18 17:39 0.20 mg/dL (0.1-1.2) 11/09/18 17:39 AST 16 units/L (5-40) 11/09/18 17:39 ALT 14 units/L (7-56) 11/09/18 17:39 68 units/L (35-129) 11/09/18 17:39 7.7 g/dL (6.3-8.2) 11/09/18 17:39 3.9 g/dL (3.9-5) 11/09/18 17:39 1.0 % 11/09/18 17:39 Yellow (Yellow) 11/09/18 17:36 Cloudy (Clear) 11/09/18 17:36 7.0 (5.0-7.0) 11/09/18 17:36 Ur Specific [place] 1.013 (1.003-1.030) 11/09/18 17:36 30 mg/dl mg/dL (Negative) 11/09/18 17:36 Neg mg/dL (Negative) 11/09/18 17:36 Neg mg/dL (Negative) 11/09/18 17:36 Sm (Negative) 11/09/18 17:36 Neg (Negative) 11/09/18 17:36 Neg (Negative) 11/09/18 17:36 < 2.0 mg/dL (<2.0) 11/09/18 17:36 Ur Leukocyte Esterase Lg (Negative) 11/09/18 17:36 > 182.0 /HPF (0.0-6.0) H 11/09/18 17:36 12.0 /HPF (0.0-6.0) 11/09/18 17:36 U Epithel Cells (Auto) 1.0 /HPF (0-13.0) 11/09/18 17:36 Few /HPF 11/09/18 17:36 Assessment and Plan Assessment and plan: 63-year-old -Niuean male with history of BPH who presents to [facility] ED with complaints of hypertensive urgency with systolic blood pressure of 220. Hypertension Urgency -Continue to monitor BP -Denies hx of HTN -IV antihypertensive when necessary -Start oral hypertensive meds to optimize BP UTI -Urine WBC >182 -Urine culture pending -Start on IV Abx JAYLA ?? CKD -Cr 1.6 with GFR 53 -Avoid nephrotoxic agents -Renal dose all meds -Nephrology consulted Hx of BPH -On Finasteride and Tamsulosin -PRN Straight catheterization -Dr. Raymond (Urology) consulted DVT PPX -On Heparin Advance Directives: No VTE prophylaxis?: Chemical Plan of care discussed with patient/family: Yes
[2018-11-09] MEDS ORDERED: ZOFRAN IV PRN (21:01)
[2018-11-09] MEDS ORDERED: SODIUM CHLORIDE FLUSH SYRINGE 10 ML IV PRN (21:01)
[2018-11-09] MEDS ORDERED: TYLENOL PO PRN (21:01)
[2018-11-09] MEDS ORDERED: APRESOLINE IV PRN (21:04)
[2018-11-09] MEDS ORDERED: PROVENTIL IH PRN (21:42)
[2018-11-09 22:04] LABS: Chol/HDL Ratio 2.21 %
[2018-11-09] MEDS: SODIUM CHLORIDE FLUSH SYRINGE 10 ML IV SCH (23:24)
[2018-11-09] MEDS: COLACE PO SCH (23:25)
[2018-11-10 08:06] LABS: Basophils % (Auto) 0.8 % (0.0-1.8); Eosinophils # (Auto) 0.1 K/mm3 (0.0-0.4); Hematocrit 39.5 % (35.5-45.6); Hemoglobin 13.2 gm/dl (11.8-15.2); Lymphocytes # (Auto) 1.7 K/mm3 (1.2-5.4); Mean Corpuscular HGB Conc 33 % (32-34); Mean Corpuscular Volume 85 fl (84-94); Monocytes # (Auto) 0.3 K/mm3 (0.0-0.8); Monocytes % (Auto) 6.8 % (0.0-7.3); Platelet Count 144 K/mm3 (140-440); Red Blood Count 4.62 M/mm3 (3.65-5.03); Red Cell Distribution Width 14.6 % (13.2-15.2)
[2018-11-10 08:28] LABS: Calcium 9.1 mg/dL (8.4-10.2)
--- NOTE | 2018-11-10 09:25 | Consultation ---
History of Present Illness - Reason for Consult Consult date: 11/10/18 acute renal failure, chronic renal failure Requesting physician: PATRICIA GLASS - History of Present Illness This is a 63-year-old -Finnish male with history of BPH who presents to [facility] ED with complaints of elevated systolic blood pressure and headache. Patient states he was being seen by his urologist and at the office his systolic blood pressure was found to be 220, and was immediately referred ED for evaluation and treatment. Upon arrival at our facility patient had blood pres sure of 210/106. He was treated with IV antihypertensive and was responsive. labs showed elevated BUN/Cr at 36/1.6mg/dl and UA showed evidence of UTI. renal consult is requested for management of JAYLA on possible CKD. Patient denies recent NSAIDs use or IV contrast exposure Past History Past Medical History: hypertension, other (BPH) Past Surgical History: No surgical history Social history: Family history: no significant family history Medications and Allergies Allergies Allergy/AdvReac Type Severity Reaction Status Date / Time No Known Allergies Allergy Verified 03/11/18 11:21 Home Medications Medication Instructions Recorded Confirmed Last Taken Type Finasteride [Proscar] 5 mg PO QDAY #30 tablet 03/15/18 11/09/18 Unknown Rx Tamsulosin [Flomax] 0.4 mg PO QDAY #30 capsule 03/15/18 11/09/18 Unknown Rx Active Meds: Active Medications Acetaminophen (Tylenol) 650 mg PO Q4H PRN PRN Reason: Pain MILD(1-3)/Fever >100.5/HARTLEY Albuterol (Proventil) 2.5 mg IH Q4HRT PRN PRN Reason: Shortness Of Breath Amlodipine Besylate (Norvasc) 10 mg PO QDAY KIRA Docusate Sodium (Colace) 100 mg PO BID KIRA Last Admin: 11/09/18 23:25 Dose: 100 mg Documented by: Enoxaparin Sodium (Lovenox) 40 mg SUB-Q QDAY KIRA Finasteride (Proscar) 5 mg PO QDAY KIRA Hydralazine HCl (Apresoline) 10 mg IV Q4H PRN PRN Reason: Blood Pressure Last Admin: 11/10/18 03:30 Dose: 10 mg Documented by: Levofloxacin/Dextrose (Levaquin 500mg/100ml) 500 mg in 100 mls @ 100 mls/hr IV Q24HR [facility]; Protocol Ondansetron HCl (Zofran) 4 mg IV Q8H PRN PRN Reason: Nausea And Vomiting Sodium Chloride (Sodium Chloride Flush Syringe 10 Ml) 10 ml IV BID [facility] Last Admin: 11/09/18 23:24 Dose: 10 ml Documented by: Sodium Chloride (Sodium Chloride Flush Syringe 10 Ml) 10 ml IV PRN PRN PRN Reason: LINE FLUSH Tamsulosin HCl (Flomax) 0.4 mg PO QDAY [facility] Review of Systems All systems: negative Constitutional: weakness Exam - Vital Signs Vital signs: Vital Signs Temp Pulse Resp BP Pulse Ox 98.2 F 80 18 210/106 98 11/09/18 16:02 11/09/18 16:02 11/09/18 16:02 11/09/18 16:02 11/09/18 16:02 - General Appearance General appearance: well-developed, well-nourished, appears stated age EENT: ATNC, PERRL, mucous membranes moist Neck: Present: neck supple Respiratory: Clear to Ascultation Heart: regular, S1S2 Gastrointestinal: Present: normoactive bowel sounds Integumentary: no rash, other (no edema ) Neurologic: no focal deficit, alert and oriented x3, strength 5/5, CN 3-12 intact Psychiatric: mood/affect appropriate, cooperative Results - Lab Results 11/10/18 07:44 11/10/18 07:44 Most recent lab results Calcium 9.1 mg/dL (8.4-10.2) 11/10/18 07:44 Assessment and Plan - Patient Problems (1) Acute renal failure Current Visit: No Status: Acute Qualifiers: Acute renal failure type: with acute tubular necrosis Qualified Code(s): N17.0 - Acute kidney failure with tubular necrosis Plan to address problem: JAYLA is most likely secondary to pre-renal azotemia in the setting of UTI. check urine lytes, urine protein/cr ratio. given h/o BPH and urinary retention in the past, will order renal/bladder US to rule out obstruct uropathy. avoid nephrotoxins, NSAIDs, IV contrast. will monitor lytes/renal parameters and make further recommendations. (2) Hypertensive chronic kidney disease with stage 1 through stage 4 chronic kidney disease, or unspecified chronic kidney disease Current Visit: Yes Status: Acute Plan to address problem: BP improved on IV hydralazine, amlodipine 10mg po qd started, however BP remains above target. will add hydralazine 50mg po q8h and adjust meds accordingly. (3) Hypertensive urgency Current Visit: Yes Status: Acute Plan to address problem: BP improved with IV hydralazine pushes prn, now being transitioned to po meds. (4) UTI (urinary tract infection) Current Visit: Yes Status: Acute Plan to address problem: cont ABXs treatment with ceftriaxone, no renal adjustment needed. follow UCx.
[2018-11-10] MEDS: LEVAQUIN 500MG/100ML 500 MG/100 ML BAG IV SCH (10:07)
[2018-11-10] MEDS: LOVENOX SUB-Q SCH (10:07)
[2018-11-10] MEDS: NORVASC PO SCH (10:07)
[2018-11-10] MEDS: PROSCAR PO SCH (10:08)
[2018-11-10] MEDS: COLACE PO SCH ×2 (10:08→22:16)
[2018-11-10] MEDS: FLOMAX PO SCH (10:09)
[2018-11-10] MEDS: SODIUM CHLORIDE FLUSH SYRINGE 10 ML IV SCH ×2 (10:09→22:17)
--- NOTE | 2018-11-10 11:46 | Progress Note ---
Assessment and Plan Assessment and plan: 63-year-old -Micron[place] male with history of BPH who presents to [facility] ED with complaints of uncontrolled blood pressures Initial evaluation consistent with hypertensive urgency with systolic blood pr essure of 220. And urinary retention, UTI --Hypertension Urgency; and on admission Moderate control Continue amlodipine, hydralazine, add beta blockers IV hydralazine when necessary --UTI Continue empiric antibiotics follow cultures --JAYLA; vasomotor nephropathy Obstructive uropathy Creatinine trending down Gentle hydration, avoid nephrotoxins Nephrology following --Bilateral hydronephrosis ; right more than left Secondary to obstructive uropathy Continue intermittent straight catheterization as before Urology made aware of these findings --Hx of BPH/urinary retention Continue Finasteride and Tamsulosin PRN Straight catheterization Discussed with Dr. Raymond Advised to follow up patient upon discharge --DVT PPX; Heparin Plan of care is reviewed with the patient His nurse and the case management History Interval history: Patient seen and examined medical records reviewed Patient feels slightly better, patient straight caths intermittently Receiving IV antibiotics for UTI Alert awake oriented 3 Vital signs reviewed Hospitalist Physical - Constitutional Vitals: Temp Pulse Resp BP Pulse Ox 98.3 F 64 18 169/100 99 11/10/18 08:25 11/10/18 10:07 11/10/18 08:25 11/10/18 10:07 11/10/18 08:25 General appearance: Present: no acute distress, well-nourished - EENT Eyes: Present: PERRL, EOM intact - Neck Neck: Present: supple, normal ROM - Respiratory Respiratory effort: normal Respiratory: bilateral: diminished, negative: rales, rhonchi, wheezing - Cardiovascular Rhythm: regular Heart Sounds: Present: S1 & S2 - Extremities Extremities: no ischemia, No edema - Abdominal General gastrointestinal: soft, non-tender, non-distended, normal bowel sounds - Integumentary Integumentary: Present: clear, warm - Psychiatric Psychiatric: appropriate mood/affect, cooperative - Neurologic Neurologic: CNII-XII intact, moves all extremities Results - Labs CBC & Chem 7: 11/10/18 07:44 11/10/18 07:44 Labs: Laboratory Last Values WBC 4.7 K/mm3 (4.5-11.0) 11/10/18 07:44 RBC 4.62 M/mm3 (3.65-5.03) 11/10/18 07:44 Hgb 13.2 gm/dl (11.8-15.2) 11/10/18 07:44 Hct 39.5 % (35.5-45.6) 11/10/18 07:44 MCV 85 fl (84-94) 11/10/18 07:44 MCH 29 pg (28-32) 11/10/18 07:44 MCHC 33 % (32-34) 11/10/18 07:44 RDW 14.6 % (13.2-15.2) 11/10/18 07:44 Plt Count 144 K/mm3 (140-440) 11/10/18 07:44 Lymph % (Auto) 36.0 % (13.4-35.0) H 11/10/18 07:44 [place] % (Auto) 6.8 % (0.0-7.3) 11/10/18 07:44 Eos % (Auto) 2.0 % (0.0-4.3) 11/10/18 07:44 Baso % (Auto) 0.8 % (0.0-1.8) 11/10/18 07:44 Lymph # 1.7 K/mm3 (1.2-5.4) 11/10/18 07:44 [place] # 0.3 K/mm3 (0.0-0.8) 11/10/18 07:44 Eos # 0.1 K/mm3 (0.0-0.4) 11/10/18 07:44 Baso # 0.0 K/mm3 (0.0-0.1) 11/10/18 07:44 Seg Neutrophils % 54.4 % (40.0-70.0) 11/10/18 07:44 Seg Neutrophils # 2.6 K/mm3 (1.8-7.7) 11/10/18 07:44 Sodium 138 mmol/L (137-145) 11/10/18 07:44 Potassium 3.8 mmol/L (3.6-5.0) 11/10/18 07:44 Chloride 99.4 mmol/L (98-107) 11/10/18 07:44 Carbon Dioxide 26 mmol/L (22-30) 11/10/18 07:44 16 mmol/L 11/10/18 07:44 BUN 29 mg/dL (9-20) H 11/10/18 07:44 1.5 mg/dL (0.8-1.5) 11/10/18 07:44 Estimated GFR 57 ml/min 11/10/18 07:44 19 % 11/10/18 07:44 Glucose 92 mg/dL (75-100) 11/10/18 07:44 5.3 % (4-6) 11/09/18 17:39 Calcium 9.1 mg/dL (8.4-10.2) 11/10/18 07:44 0.20 mg/dL (0.1-1.2) 11/09/18 17:39 AST 16 units/L (5-40) 11/09/18 17:39 ALT 14 units/L (7-56) 11/09/18 17:39 68 units/L (35-129) 11/09/18 17:39 7.7 g/dL (6.3-8.2) 11/09/18 17:39 3.9 g/dL (3.9-5) 11/09/18 17:39 1.0 % 11/09/18 17:39 Triglycerides 68 mg/dL (2-149) 11/09/18 17:39 Cholesterol 199 mg/dL (50-199) 11/09/18 17:39 113 mg/dL (50-130) 11/09/18 17:39 90 mg/dL (40-59) H 11/09/18 17:39 2.21 % 11/09/18 17:39 Yellow (Yellow) 11/09/18 17:36 Cloudy (Clear) 11/09/18 17:36 7.0 (5.0-7.0) 11/09/18 17:36 Ur Specific [place] 1.013 (1.003-1.030) 11/09/18 17:36 30 mg/dl mg/dL (Negative) 11/09/18 17:36 Neg mg/dL (Negative) 11/09/18 17:36 Neg mg/dL (Negative) 11/09/18 17:36 Sm (Negative) 11/09/18 17:36 Neg (Negative) 11/09/18 17:36 Neg (Negative) 11/09/18 17:36 < 2.0 mg/dL (<2.0) 11/09/18 17:36 Ur Leukocyte Esterase Lg (Negative) 11/09/18 17:36 > 182.0 /HPF (0.0-6.0) H 11/09/18 17:36 12.0 /HPF (0.0-6.0) 11/09/18 17:36 U Epithel Cells (Auto) 1.0 /HPF (0-13.0) 11/09/18 17:36 Few /HPF 11/09/18 17:36 Active Medications - Current Medications Current Medications: Generic Name Dose Route Start Last Admin Trade Name Freq PRN Reason Stop Dose Admin Acetaminophen 650 mg 11/09/18 21:01 Tylenol PO Q4H PRN Pain MILD(1-3)/Fever >100.5/HARTLEY Albuterol 2.5 mg 11/09/18 21:42 Proventil IH Q4HRT PRN Shortness Of Breath Amlodipine Besylate 10 mg 11/10/18 10:00 11/10/18 10:07 Norvasc PO 10 mg QDAY KIRA Administration Docusate Sodium 100 mg 11/09/18 22:00 11/10/18 10:08 Colace PO 100 mg BID KIRA Administration Enoxaparin Sodium 40 mg 11/10/18 10:00 11/10/18 10:07 Lovenox SUB-Q 40 mg QDAY KIRA Administration Finasteride 5 mg 11/10/18 10:00 11/10/18 10:08 Proscar PO 5 mg QDAY KIRA Administration Hydralazine HCl 10 mg 11/09/18 21:04 11/10/18 03:30 Apresoline IV 10 mg Q4H PRN Administration Blood Pressure Hydralazine HCl 50 mg 11/10/18 14:00 Apresoline PO Q8HR KIRA Levofloxacin/Dextrose 500 mg in 100 mls @ 100 mls/hr 11/10/18 10:00 11/10/18 10:07 Levaquin 500mg/100ml IV 100 mls/hr Q24HR KIRA Administration Protocol Ondansetron HCl 4 mg 11/09/18 21:01 Zofran IV Q8H PRN Nausea And Vomiting Sodium Chloride 10 ml 11/09/18 22:00 11/10/18 10:09 Sodium Chloride Flush Syringe 10 Ml IV 10 ml BID KIRA Administration Sodium Chloride 10 ml 11/09/18 21:01 Sodium Chloride Flush Syringe 10 Ml IV PRN PRN LINE FLUSH Tamsulosin HCl 0.4 mg 11/10/18 10:00 11/10/18 10:09 Flomax PO 0.4 mg QDAY KIRA Administration
[2018-11-10 14:17] LABS: Creatinine,Urine 19.6 mg/dL (0.1-20.0)
--- NOTE | 2018-11-10 14:50 | Ultrasound Report ---
RENAL ULTRASOUND HISTORY: JAYLA, h/o urinary retention COMPARISON: CT abdomen and pelvis without contrast 03/11/2018 TECHNIQUE: Multiple real-time ultrasonographic grayscale images were obtained of the kidneys and urin leti bladder. FINDINGS: Right kidney: Increased parenchymal echogenicity and moderate parenchymal thinning. Moderate hydronep hrosis. Kidney measures 9.4 x 5.5 x 6.2 cm. Left kidney: Increased parenchymal echogenicity and moderate parenchymal thinning. Mild hydronephrosi s. Kidney measures 9.9 x 4.9 x 5.9 cm. Urinary bladder: Irregular bladder wall thickening and an enlarged prostate extending into the lumen of the bladder at the base of the bladder measuring 3.2 x 3.4 x 3.4 cm. Additional findings: No urinary calculus identified. IMPRESSION: 1. Bilateral medical renal disease. 2. Moderate right hydronephrosis and mild left hydronephrosis. 3. Enlarged prostate and nonspecific bilateral wall thickening and irregularity. Signer Name: Brijesh Humphreys MD Signed: 11/10/2018 2:45 PM Workstation Name: [id number]
[2018-11-10] MEDS: APRESOLINE PO SCH ×2 (15:11→22:16)
[2018-11-10] MEDS: LOPRESSOR PO SCH (22:16)
[2018-11-11] MEDS: APRESOLINE PO SCH ×3 (05:43→22:36)
[2018-11-11] MEDS: LOVENOX SUB-Q SCH (09:47)
[2018-11-11] MEDS: LEVAQUIN 500MG/100ML 500 MG/100 ML BAG IV SCH (09:47)
[2018-11-11] MEDS: FLOMAX PO SCH (09:48)
[2018-11-11] MEDS: LOPRESSOR PO SCH ×2 (09:48→22:37)
[2018-11-11] MEDS: NORVASC PO SCH (09:48)
[2018-11-11] MEDS: PROSCAR PO SCH (09:48)
[2018-11-11] MEDS: COLACE PO SCH ×2 (09:49→22:36)
[2018-11-11] MEDS: SODIUM CHLORIDE FLUSH SYRINGE 10 ML IV SCH ×2 (09:49→22:41)
--- NOTE | 2018-11-11 15:23 | Progress Note ---
Assessment and Plan Assessment and plan: 63-year-old -French male with history of BPH who presents to [facility] ED with complaints of uncontrolled blood pressures Initial evaluation consistent with hypertensive urgency with systolic blood pr essure of 220. 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 Raymond Advised to follow up patient upon discharge --DVT PPX; Heparin Plan of care is reviewed with the patient His nurse and the case management History Interval history: Patient seen and examined medical records reviewed Patient feels better no fever no WBC Urine cultures positive for gram-negative rods, pending sensitivities Alert awake oriented 3 Vital signs noted Hospitalist Physical - Constitutional Vitals: Temp Pulse Resp BP Pulse Ox 97.8 F 72 18 145/78 98 11/11/18 14:11 11/11/18 14:11 11/11/18 14:11 11/11/18 14:11 11/11/18 14:11 General appearance: Present: no acute distress, well-nourished - EENT Eyes: Present: PERRL, EOM intact - Neck Neck: Present: supple, normal ROM - Respiratory Respiratory effort: normal Respiratory: bilateral: diminished, negative: rales, rhonchi, wheezing - Cardiovascular Rhythm: regular Heart Sounds: Present: S1 & S2 - Extremities Extremities: no ischemia, No edema - Abdominal General gastrointestinal: soft, non-tender, non-distended, normal bowel sounds - Integumentary Integumentary: Present: clear, warm - Psychiatric Psychiatric: appropriate mood/affect, cooperative - Neurologic Neurologic: CNII-XII intact, moves all extremities Results - Labs CBC & Chem 7: 11/10/18 07:44 11/10/18 07:44 Labs: Laboratory Last Values WBC 4.7 K/mm3 (4.5-11.0) 11/10/18 07:44 RBC 4.62 M/mm3 (3.65-5.03) 11/10/18 07:44 Hgb 13.2 gm/dl (11.8-15.2) 11/10/18 07:44 Hct 39.5 % (35.5-45.6) 11/10/18 07:44 MCV 85 fl (84-94) 11/10/18 07:44 MCH 29 pg (28-32) 11/10/18 07:44 MCHC 33 % (32-34) 11/10/18 07:44 RDW 14.6 % (13.2-15.2) 11/10/18 07:44 Plt Count 144 K/mm3 (140-440) 11/10/18 07:44 Lymph % (Auto) 36.0 % (13.4-35.0) H 11/10/18 07:44 [place] % (Auto) 6.8 % (0.0-7.3) 11/10/18 07:44 Eos % (Auto) 2.0 % (0.0-4.3) 11/10/18 07:44 Baso % (Auto) 0.8 % (0.0-1.8) 11/10/18 07:44 Lymph # 1.7 K/mm3 (1.2-5.4) 11/10/18 07:44 [place] # 0.3 K/mm3 (0.0-0.8) 11/10/18 07:44 Eos # 0.1 K/mm3 (0.0-0.4) 11/10/18 07:44 Baso # 0.0 K/mm3 (0.0-0.1) 11/10/18 07:44 Seg Neutrophils % 54.4 % (40.0-70.0) 11/10/18 07:44 Seg Neutrophils # 2.6 K/mm3 (1.8-7.7) 11/10/18 07:44 Sodium 138 mmol/L (137-145) 11/10/18 07:44 Potassium 3.8 mmol/L (3.6-5.0) 11/10/18 07:44 Chloride 99.4 mmol/L (98-107) 11/10/18 07:44 Carbon Dioxide 26 mmol/L (22-30) 11/10/18 07:44 16 mmol/L 11/10/18 07:44 BUN 29 mg/dL (9-20) H 11/10/18 07:44 1.5 mg/dL (0.8-1.5) 11/10/18 07:44 Estimated GFR 57 ml/min 11/10/18 07:44 19 % 11/10/18 07:44 Glucose 92 mg/dL (75-100) 11/10/18 07:44 5.3 % (4-6) 11/09/18 17:39 Calcium 9.1 mg/dL (8.4-10.2) 11/10/18 07:44 0.20 mg/dL (0.1-1.2) 11/09/18 17:39 AST 16 units/L (5-40) 11/09/18 17:39 ALT 14 units/L (7-56) 11/09/18 17:39 68 units/L (35-129) 11/09/18 17:39 7.7 g/dL (6.3-8.2) 11/09/18 17:39 3.9 g/dL (3.9-5) 11/09/18 17:39 1.0 % 11/09/18 17:39 Triglycerides 68 mg/dL (2-149) 11/09/18 17:39 Cholesterol 199 mg/dL (50-199) 11/09/18 17:39 113 mg/dL (50-130) 11/09/18 17:39 90 mg/dL (40-59) H 11/09/18 17:39 2.21 % 11/09/18 17:39 Yellow (Yellow) 11/09/18 17:36 Cloudy (Clear) 11/09/18 17:36 7.0 (5.0-7.0) 11/09/18 17:36 Ur Specific [place] 1.013 (1.003-1.030) 11/09/18 17:36 30 mg/dl mg/dL (Negative) 11/09/18 17:36 Neg mg/dL (Negative) 11/09/18 17:36 Neg mg/dL (Negative) 11/09/18 17:36 Sm (Negative) 11/09/18 17:36 Neg (Negative) 11/09/18 17:36 Neg (Negative) 11/09/18 17:36 < 2.0 mg/dL (<2.0) 11/09/18 17:36 Ur Leukocyte Esterase Lg (Negative) 11/09/18 17:36 > 182.0 /HPF (0.0-6.0) H 11/09/18 17:36 12.0 /HPF (0.0-6.0) 11/09/18 17:36 U Epithel Cells (Auto) 1.0 /HPF (0-13.0) 11/09/18 17:36 Few /HPF 11/09/18 17:36 19.6 mg/dL (0.1-20.0) 11/10/18 13:53 41 mmol/L 11/10/18 13:53 11 mg/dL (5-11.8) 11/10/18 13:53 Active Medications - Current Medications Current Medications: Generic Name Dose Route Start Last Admin Trade Name Freq PRN Reason Stop Dose Admin Acetaminophen 650 mg 11/09/18 21:01 11/10/18 16:44 Tylenol PO 650 mg Q4H PRN Administration Pain MILD(1-3)/Fever >100.5/HARTLEY Albuterol 2.5 mg 11/09/18 21:42 Proventil IH Q4HRT PRN Shortness Of Breath Amlodipine Besylate 10 mg 11/10/18 10:00 11/11/18 09:48 Norvasc PO 10 mg QDAY KIRA Administration Docusate Sodium 100 mg 11/09/18 22:00 11/11/18 09:49 Colace PO 100 mg BID KIRA Administration Enoxaparin Sodium 40 mg 11/10/18 10:00 11/11/18 09:47 Lovenox SUB-Q 40 mg QDAY KIRA Administration Finasteride 5 mg 11/10/18 10:00 11/11/18 09:48 Proscar PO 5 mg QDAY KIRA Administration Hydralazine HCl 10 mg 11/09/18 21:04 11/10/18 03:30 Apresoline IV 10 mg Q4H PRN Administration Blood Pressure Hydralazine HCl 50 mg 11/10/18 14:00 11/11/18 15:01 Apresoline PO 50 mg Q8HR KIRA Administration Levofloxacin/Dextrose 500 mg in 100 mls @ 100 mls/hr 11/10/18 10:00 11/11/18 09:47 Levaquin 500mg/100ml IV 100 mls/hr Q24HR KIRA Administration Protocol Metoprolol Tartrate 12.5 mg 11/10/18 22:00 11/11/18 09:48 Lopressor PO 12.5 mg BID KIRA Administration Ondansetron HCl 4 mg 11/09/18 21:01 Zofran IV Q8H PRN Nausea And Vomiting Sodium Chloride 10 ml 11/09/18 22:00 11/11/18 09:49 Sodium Chloride Flush Syringe 10 Ml IV 10 ml BID KIRA Administration Sodium Chloride 10 ml 11/09/18 21:01 Sodium Chloride Flush Syringe 10 Ml IV PRN PRN LINE FLUSH Tamsulosin HCl 0.4 mg 11/10/18 10:00 11/11/18 09:48 Flomax PO 0.4 mg QDAY KIRA Administration
--- NOTE | 2018-11-11 17:17 | Progress Note ---
Assessment and Plan - Patient Problems (1) Acute renal failure Current Visit: No Status: Acute Qualifiers: Acute renal failure type: with acute tubular necrosis Qualified Code(s): N17.0 - Acute kidney failure with tubular necrosis Plan to address problem: JAYLA is most likely secondary to pre-renal azotemia in the setting of UTI. check urine lytes, urine protein/cr ratio. given h/o BPH and urinary retention in the past. renal US showed b/l hydronephrosis, pt is performing self catheterization. avoid nephrotoxins, NSAIDs, IV contrast. will monitor lytes/renal parameters and make further recommendations. (2) Hypertensive chronic kidney disease with stage 1 through stage 4 chronic kidney disease, or unspecified chronic kidney disease Current Visit: Yes Status: Acute Plan to address problem: BP improved on current meds (3) Hypertensive urgency Current Visit: Yes Status: Acute Plan to address problem: BP improved with IV hydralazine pushes prn, now transitioned to po meds. (4) UTI (urinary tract infection) Current Visit: Yes Status: Acute Plan to address problem: cont ABXs treatment with ceftriaxone, no renal adjustment needed. follow UCx. Subjective Date of service: 11/11/18 Principal diagnosis: JAYLA on CKD Interval history: Pt awake, alert, reports that he is performing self catheterization Objective - Vital Signs Vital signs: Vital Signs - 12hr 11/11/18 11/11/18 11/11/18 06:26 07:29 07:55 Temperature 98.0 F Pulse Rate 67 86 Respiratory 18 Rate Blood Pressure 139/92 O2 Sat by Pulse 98 97 Oximetry 11/11/18 14:11 Temperature 97.8 F Pulse Rate 72 Respiratory 18 Rate Blood Pressure 145/78 O2 Sat by Pulse 98 Oximetry - General Appearance General appearance: well-developed, well-nourished, appears stated age EENT: ATNC, PERRL, mucous membranes moist Neck: no JVD Respiratory: Present: Clear to Ascultation Cardiology: regular, S1S2 Gastrointestinal: normoactive bowel sounds Integumentary: no rash, other (no edema ) Neurologic: no focal deficit, alert and oriented x3, strength 5/5, CN 3-12 intact Psychiatric: mood/affect appropriate, cooperative - Lab 11/10/18 07:44 11/10/18 07:44 Most recent lab results Calcium 9.1 mg/dL (8.4-10.2) 11/10/18 07:44 19.6 mg/dL (0.1-20.0) 11/10/18 13:53 41 mmol/L 11/10/18 13:53 11 mg/dL (5-11.8) 11/10/18 13:53 Medications & Allergies - Medications Allergies/Adverse Reactions: Allergies No Known Allergies Allergy (Verified 03/11/18 11:21) Home Medications: Home Medications Medication Instructions Recorded Confirmed Last Taken Type Finasteride [Proscar] 5 mg PO QDAY #30 tablet 03/15/18 11/09/18 Unknown Rx Tamsulosin [Flomax] 0.4 mg PO QDAY #30 capsule 03/15/18 11/09/18 Unknown Rx Active Medications: Generic Name Dose Route Start Last Admin Trade Name Freq PRN Reason Stop Dose Admin Acetaminophen 650 mg 11/09/18 21:01 11/10/18 16:44 Tylenol PO 650 mg Q4H PRN Administration Pain MILD(1-3)/Fever >100.5/HARTLEY Albuterol 2.5 mg 11/09/18 21:42 Proventil IH Q4HRT PRN Shortness Of Breath Amlodipine Besylate 10 mg 11/10/18 10:00 11/11/18 09:48 Norvasc PO 10 mg QDAY KIRA Administration Docusate Sodium 100 mg 11/09/18 22:00 11/11/18 09:49 Colace PO 100 mg BID KIRA Administration Enoxaparin Sodium 40 mg 11/10/18 10:00 11/11/18 09:47 Lovenox SUB-Q 40 mg QDAY KIRA Administration Finasteride 5 mg 11/10/18 10:00 11/11/18 09:48 Proscar PO 5 mg QDAY KIRA Administration Hydralazine HCl 10 mg 11/09/18 21:04 11/10/18 03:30 Apresoline IV 10 mg Q4H PRN Administration Blood Pressure Hydralazine HCl 50 mg 11/10/18 14:00 11/11/18 15:01 Apresoline PO 50 mg Q8HR KIRA Administration Levofloxacin/Dextrose 500 mg in 100 mls @ 100 mls/hr 11/10/18 10:00 11/11/18 09:47 Levaquin 500mg/100ml IV 100 mls/hr Q24HR KIRA Administration Protocol Metoprolol Tartrate 12.5 mg 11/10/18 22:00 11/11/18 09:48 Lopressor PO 12.5 mg BID KIRA Administration Ondansetron HCl 4 mg 11/09/18 21:01 Zofran IV Q8H PRN Nausea And Vomiting Sodium Chloride 10 ml 11/09/18 22:00 11/11/18 09:49 Sodium Chloride Flush Syringe 10 Ml IV 10 ml BID KIRA Administration Sodium Chloride 10 ml 11/09/18 21:01 Sodium Chloride Flush Syringe 10 Ml IV PRN PRN LINE FLUSH Tamsulosin HCl 0.4 mg 11/10/18 10:00 11/11/18 09:48 Flomax PO 0.4 mg QDAY KIRA Administration
[2018-11-12] MEDS: APRESOLINE PO SCH ×2 (05:18→14:50)
[2018-11-12] MEDS: COLACE PO SCH (10:43)
[2018-11-12] MEDS: LOPRESSOR PO SCH (10:43)
[2018-11-12] MEDS: PROSCAR PO SCH (10:43)
[2018-11-12] MEDS: NORVASC PO SCH (10:43)
[2018-11-12] MEDS: FLOMAX PO SCH (10:43)
[2018-11-12] MEDS: LOVENOX SUB-Q SCH (10:44)
[2018-11-12] MEDS: SODIUM CHLORIDE FLUSH SYRINGE 10 ML IV SCH (10:44)
[2018-11-12] MEDS ORDERED: ROCEPHIN/NS 1 GM/50 ML 1 GM/50 ML BAG IV SCH (11:00)
--- NOTE | 2018-11-12 11:34 | Consultation ---
History of Present Illness - Reason for Consult Consult date: 11/12/18 - History of Present Illness 54 yo M PMhx BPH admitted to [facility] with a hypertensive urgency. He had been complaining of a headache while at the urologist's office ont he day of admission and was found to have a blood pressure of 220, which was consistent with his BP here on admission to 210/106. He was given an intravenous antihypertensive to which his blood pressure responded. he was found to have an JAYLA, and a urinalysis was obtained which demonstrated a UTI and E coli grew from the cultures with significant resistances. Afebrile since admission with a normal white count. Cultures as above. Currently receiving ceftriaxone. He was previously admitted here in February with a sepsis/bacteremia secondary to UTI which grew a similar if slightly more sensitive E coli. At that time he was treated with ceftriaxone inpatient by my partner and discharged with Keflex to complete 2 weeks. Imaging personally reviewed: Renal US: bilateral medical renal disease, bilateral hydronephrosis. Review of Systems: Bold if positive, otherwise negative General: fevers, chills, rigors HEENT: visual disturbance, diplopia, eye pain Respiratory: cough, sputum, hemoptysis, shortness of breath Cardiovascular: chest pain, syncope Gastrointestinal: nausea, vomiting, diarrhea, abdominal pain Genitourinary: dysuria, hematuria, flank pain Musculoskeletal: neck pain, back pain, joint pain, edema Neurologic: headaches, seizures Hematologic: easy bruising or bleeding Endocrine: night sweats, acute weight loss Skin: rash, jaundice, redness Psychiatric: suicidal, homicidal ideation Past History Past Medical History: hypertension, other (BPH) Past Surgical History: No surgical history Social history: . denies: smoking Family history: CAD Medications and Allergies Allergies Allergy/AdvReac Type Severity Reaction Status Date / Time No Known Allergies Allergy Verified 03/11/18 11:21 Home Medications Medication Instructions Recorded Confirmed Last Taken Type Finasteride [Proscar] 5 mg PO QDAY #30 tablet 03/15/18 11/09/18 Unknown Rx Tamsulosin [Flomax] 0.4 mg PO QDAY #30 capsule 03/15/18 11/09/18 Unknown Rx Cefdinir 300 mg PO BID #14 capsule 11/12/18 Unknown Rx Metoprolol [Lopressor TAB] 12.5 mg PO BID #60 tablet 11/12/18 Unknown Rx amLODIPine [Norvasc] 10 mg PO QDAY #30 tablet 11/12/18 Unknown Rx hydrALAZINE [Apresoline TAB] 50 mg PO Q8HR #90 tablet 11/12/18 Unknown Rx Active Meds: Active Medications Acetaminophen (Tylenol) 650 mg PO Q4H PRN PRN Reason: Pain MILD(1-3)/Fever >100.5/HARTLEY Last Admin: 11/10/18 16:44 Dose: 650 mg Documented by: Albuterol (Proventil) 2.5 mg IH Q4HRT PRN PRN Reason: Shortness Of Breath Amlodipine Besylate (Norvasc) 10 mg PO QDAY [facility] Last Admin: 11/12/18 10:43 Dose: 10 mg Documented by: Docusate Sodium (Colace) 100 mg PO BID [facility] Last Admin: 11/12/18 10:43 Dose: 100 mg Documented by: Enoxaparin Sodium (Lovenox) 40 mg SUB-Q QDAY [facility] Last Admin: 11/12/18 10:44 Dose: 40 mg Documented by: Finasteride (Proscar) 5 mg PO QDAY [facility] Last Admin: 11/12/18 10:43 Dose: 5 mg Documented by: Hydralazine HCl (Apresoline) 10 mg IV Q4H PRN PRN Reason: Blood Pressure Last Admin: 11/10/18 03:30 Dose: 10 mg Documented by: Hydralazine HCl (Apresoline) 50 mg PO Q8HR [facility] Last Admin: 11/12/18 05:18 Dose: 50 mg Documented by: Ceftriaxone Sodium (Rocephin/Ns 1 Gm/50 Ml) 1 gm in 50 mls @ 100 mls/hr IV Q24HR [facility]; Protocol Metoprolol Tartrate (Lopressor) 12.5 mg PO BID [facility] Last Admin: 11/12/18 10:43 Dose: 12.5 mg Documented by: Ondansetron HCl (Zofran) 4 mg IV Q8H PRN PRN Reason: Nausea And Vomiting Sodium Chloride (Sodium Chloride Flush Syringe 10 Ml) 10 ml IV BID [facility] Last Admin: 11/12/18 10:44 Dose: 10 ml Documented by: Sodium Chloride (Sodium Chloride Flush Syringe 10 Ml) 10 ml IV PRN PRN PRN Reason: LINE FLUSH Tamsulosin HCl (Flomax) 0.4 mg PO QDAY [facility] Last Admin: 11/12/18 10:43 Dose: 0.4 mg Documented by: Physical Examination - Physical Exam Narrative exam: Physical Exam: Constitutional: Alert, cooperative. No acute distress Head, Ears, Nose: Normocephalic, atraumatic. External ears, nose normal Eyes: Conjunctivae/corneas clear. No icterus. No ptosis. Neck: Supple, no meningeal signs Oral: dentition fair, no thrush Cardiovascular: S1, S2 normal. Respiratory: Good air entry, clear to auscultation bilaterally GI: Soft, non-tender; bowel sounds normal. No peritoneal signs. Musculoskeletal: No pedal edema, no cyanosis. Skin: No rash or abscess Hem/Lymphatic: No palpable cervical or supraclavicular nodes. No lymphangitis Psych: Mood ok. Affect normal Neurological: Awake, alert, oriented. No gross abnormality - Constitutional Vitals: Vital Signs Temp Pulse Resp BP Pulse Ox 98.2 F 86 18 126/77 97 11/12/18 07:55 11/12/18 10:43 11/12/18 07:55 11/12/18 10:43 11/12/18 08:59 Temperature -Last 24 Hours Temperature 98.2 F Temperature 98.8 F Temperature 98.5 F Temperature 97.5 F Temperature 97.8 F Results - Labs CBC & Chem 7: 11/10/18 07:44 11/10/18 07:44 Assessment and Plan Cultures: Urine cultures: MDR E coli A/P: 54 yo M PMhx BPH admitted with hypertensive urgency and UTI 1. MDR E coli UTI - at risk of recurrent infections due to BPH and urine stagnation. Sensitive to ceftriaxone which he has been receiving. Few remaining PO options - recommend changing to cefdinir 300mg q12h to complete 10 days from initiation of ceftriaxone. 2. BPH 3. Hypertensive urgency - resolved 4. JAYLA - possibly secondary to UTI. Recs: - on discharge please send on cefdinir 300mg q12h. Stop date: 11/19 Thank you for the consult, we will continue to follow while he is admitted. Clay Daniel MD [facility] M: [phone] O: [phone] F: [phone]
--- NOTE | 2018-11-12 14:38 | Progress Note ---
Assessment and Plan - Patient Problems (1) Acute renal failure Current Visit: No Status: Acute Qualifiers: Acute renal failure type: with acute tubular necrosis Qualified Code(s): N17.0 - Acute kidney failure with tubular necrosis Plan to address problem: JAYLA is most likely secondary to pre-renal azotemia in the setting of UTI. given h/o BPH and urinary retention in the past. renal US showed b/l hydronephrosis, pt is performing self catheterization. avoid nephrotoxins, NSAIDs, IV contrast. will monitor lytes/renal parameters and make further recommendations. minimal proteinuria noted with urine P/C ratio of 578mg/g (2) Hypertensive chronic kidney disease with stage 1 through stage 4 chronic kidney disease, or unspecified chronic kidney disease Current Visit: Yes Status: Acute Plan to address problem: BP improved on current meds (3) Hypertensive urgency Current Visit: Yes Status: Acute Plan to address problem: BP improved, monitor on current meds (4) UTI (urinary tract infection) Current Visit: Yes Status: Acute Subjective Date of service: 11/12/18 Principal diagnosis: JAYLA on CKD Interval history: Pt awake, alert, reports that he is performing self catheterization Objective - Vital Signs Vital signs: Vital Signs - 12hr 11/12/18 11/12/18 11/12/18 07:55 08:59 10:43 Temperature 98.2 F Pulse Rate 86 86 Pulse Rate [ 78 Right Radial] Respiratory 18 Rate Blood Pressure 126/77 126/77 O2 Sat by Pulse 97 97 Oximetry - General Appearance General appearance: well-developed, well-nourished, appears stated age EENT: ATNC, PERRL, mucous membranes moist Neck: no JVD Respiratory: Present: Clear to Ascultation Cardiology: regular, S1S2 Gastrointestinal: normoactive bowel sounds Integumentary: no rash, other (no edema ) Neurologic: no focal deficit, alert and oriented x3, strength 5/5, CN 3-[address] Psychiatric: mood/affect appropriate, cooperative - Lab 11/10/18 07:44 11/10/18 07:44 Most recent lab results Calcium 9.1 mg/dL (8.4-10.2) 11/10/18 07:44 19.6 mg/dL (0.1-20.0) 11/10/18 13:53 41 mmol/L 11/10/18 13:53 11 mg/dL (5-11.8) 11/10/18 13:53 Medications & Allergies - Medications Allergies/Adverse Reactions: Allergies No Known Allergies Allergy (Verified 03/11/18 11:21) Home Medications: Home Medications Medication Instructions Recorded Confirmed Last Taken Type Finasteride [Proscar] 5 mg PO QDAY #30 tablet 03/15/18 11/09/18 Unknown Rx Tamsulosin [Flomax] 0.4 mg PO QDAY #30 capsule 03/15/18 11/09/18 Unknown Rx Active Medications: Generic Name Dose Route Start Last Admin Trade Name Freq PRN Reason Stop Dose Admin Acetaminophen 650 mg 11/09/18 21:01 11/10/18 16:44 Tylenol PO 650 mg Q4H PRN Administration Pain MILD(1-3)/Fever >100.5/HARTLEY Albuterol 2.5 mg 11/09/18 21:42 Proventil IH Q4HRT PRN Shortness Of Breath Amlodipine Besylate 10 mg 11/10/18 10:00 11/12/18 10:43 Norvasc PO 10 mg QDAY KIRA Administration Docusate Sodium 100 mg 11/09/18 22:00 11/12/18 10:43 Colace PO 100 mg BID KIRA Administration Enoxaparin Sodium 40 mg 11/10/18 10:00 11/12/18 10:44 Lovenox SUB-Q 40 mg QDAY KIRA Administration Finasteride 5 mg 11/10/18 10:00 11/12/18 10:43 Proscar PO 5 mg QDAY KIRA Administration Hydralazine HCl 10 mg 11/09/18 21:04 11/10/18 03:30 Apresoline IV 10 mg Q4H PRN Administration Blood Pressure Hydralazine HCl 50 mg 11/10/18 14:00 11/12/18 05:18 Apresoline PO 50 mg Q8HR KIRA Administration Ceftriaxone Sodium 1 gm in 50 mls @ 100 mls/hr 11/12/18 11:00 11/12/18 11:45 Rocephin/Ns 1 Gm/50 Ml IV 100 mls/hr Q24HR KIRA Administration Protocol Metoprolol Tartrate 12.5 mg 11/10/18 22:00 11/12/18 10:43 Lopressor PO 12.5 mg BID KIRA Administration Ondansetron HCl 4 mg 11/09/18 21:01 Zofran IV Q8H PRN Nausea And Vomiting Sodium Chloride 10 ml 11/09/18 22:00 11/12/18 10:44 Sodium Chloride Flush Syringe 10 Ml IV 10 ml BID KIRA Administration Sodium Chloride 10 ml 11/09/18 21:01 Sodium Chloride Flush Syringe 10 Ml IV PRN PRN LINE FLUSH Tamsulosin HCl 0.4 mg 11/10/18 10:00 11/12/18 10:43 Flomax PO 0.4 mg QDAY KIRA Administration
--- NOTE | 2018-11-12 14:46 | Discharge Summary ---
Providers - Providers Date of Admission: 11/09/18 19:47 Date of discharge: 11/12/18 Attending physician: KEV BURK 11/09/18 21:01 Consult to Physician [CONS] Routine Comment: Consulting Provider: EDUARD BOGGS Physician Instructions: Reason For Exam: JAYLA ?? CDK 11/09/18 21:02 Consult to Physician [CONS] Routine Comment: Consulting Provider: ABDULAZIZ RAYMOND Physician Instructions: Reason For Exam: est pt hx BPH urinary retention 11/10/18 14:58 Physical Therapy Evaluation and Treat [CONS] Routine Comment: Reason For Exam: Weakness 11/12/18 10:29 Consult to Physician [CONS] Routine Comment: spoke to tommy/ tatiana Consulting Provider: ORTEGA MOE Physician Instructions: Reason For Exam: complicated UTI/Ecoli,choice of antibiotics at [facility] Primary care physician: [employer] Hospitalization Reason for admission: Uncontrolled Blood presure and UTI Condition: Stable Pertinent studies: Renal US Hospital course: 63-year-old -[place] male with history of BPH who presents to [facility] with complaints of uncontrolled blood pressures. Initial evaluation consistent with hypertensive urgency with systolic blood pressure of 220. And urinary retention, UTI .Admitted and managed appropriately,consulted Urologist,pt has chronic hydronephrosis,consulted urologist,Dr Raymond rec to continue intermittant straight cath,and f/u on discharge. UTI ,Ecoli,sensitivities noted,ID recommend to PA on Cefdinir antibiotic for 7days. Patient is stable at discharge. Discharge Diagnosis: --UTI; urine cultures positive for gram-negative rods Continue empiric antibiotics follow culture sensitivities Ecoli,treated and adjusted antibiotics per sensitivites --Hypertension Urgency; and on admission Moderate control,Continue amlodipine, hydralazine, add beta blockers, IV hydralazine when necessary --JAYLA; vasomotor nephropathy Obstructive uropathy Creatinine trending down Gentle hydration, avoid nephrotoxins Nephrology following --Bilateral hydronephrosis ; right more than left Secondary to obstructive uropathy Continue intermittent straight catheterization as before Urology recommended outpatient follow-up upon discharge --Hx of BPH/urinary retention Continue Finasteride and Tamsulosin PRN Straight catheterization Discussed with Dr. Raymond Advised to follow up patient upon discharge --DVT PPX; Heparin Stable at discharge Disposition: [place] TO HOME OR SELFCARE Time spent for discharge: 32 min Core Measure Documentation - Palliative Care Palliative Care/ Comfort Measures: Not Applicable - Core Measures Any of the following diagnoses?: none Exam - Constitutional Vitals: Temp Pulse Resp BP Pulse Ox 98.2 F 86 18 126/77 97 11/12/18 07:55 11/12/18 10:43 11/12/18 07:55 11/12/18 10:43 11/12/18 08:59 General appearance: Present: no acute distress, well-nourished - EENT Eyes: Present: PERRL, EOM intact - Neck Neck: Present: supple, normal ROM - Respiratory Respiratory effort: normal Respiratory: bilateral: diminished, negative: rales, rhonchi, wheezing - Cardiovascular Rhythm: regular Heart Sounds: Present: S1 & S2 - Extremities Extremities: no ischemia, No edema - Abdominal General gastrointestinal: Present: soft, non-tender, non-distended, normal bowel sounds - Integumentary Integumentary: Present: clear, warm - Musculoskeletal Musculoskeletal: strength equal bilaterally, generalized weakness - Psychiatric Psychiatric: appropriate mood/affect, cooperative - Neurologic Neurologic: CNII-XII intact, moves all extremities Plan Activity: advance as tolerated Diet: regular Additional Instructions: Self straight catheterization as needed. Follow-up primary care physician in one week. follow urologist Dr. Raymond per schedule Follow up with: COLBY VALENTINE MD [Primary Care Provider] - 7 Days ABDULAZIZ RAYMOND MD [Staff Physician] - 7 Days Prescriptions: hydrALAZINE [Apresoline TAB] 50 mg PO Q8HR #90 tablet Cefdinir 300 mg PO BID #14 capsule Metoprolol [Lopressor TAB] 12.5 mg PO BID #60 tablet amLODIPine [Norvasc] 10 mg PO QDAY #30 tablet
[2018-11-12 14:57] VITALS: BP 141/79
== END 2018-11-12 17:45 | disposition home or self-care (01) | DRG 690 ==
LOC: ED 15:56 → 2B-ACE 19:47
PROVIDERS: ADMIT Internal Medicine; ATTEND Internal Medicine
DX: N13.6 Pyonephrosis (principal); N17.0 Acute kidney failure with tubular necrosis; I16.0 Hypertensive urgency; N40.1 Benign prostatic hyperplasia with lower urinary tract symptoms; R33.8 Other retention of urine; B96.20 Unspecified Escherichia coli [E. coli] as the cause of diseases classified elsewhere; I12.9 Hypertensive chronic kidney disease with stage 1 through stage 4 chronic kidney disease, or unspecified chronic kidney disease; N18.9 Chronic kidney disease, unspecified; Z82.49 Family history of ischemic heart disease and other diseases of the circulatory system; Z79.899 Other long term (current) drug therapy
CPT/HCPCS: 36415; 76770; 80048; 80053; 80061; 81001; 82570; 83036; 84156; 84300; 85025; 87076; 87086; 87186; 93005; 93010; 96365; 96375; G0378; J0360; J0696; J1650; J1956; J7030